=== PATIENT | male | born 1950 | race Caucasian/White ===

== ENCOUNTER 2020-03-06 07:00 | Outpatient (NON) | payer MEDICARE, SELFPAY ==
[2020-03-07 13:19] LABS: SARS-CoV-2 RNA PCR Negative
== END 2020-03-06 07:01 ==
PROVIDERS: PCP Family Medicine; Visit Provider Nurse Practitioner
DX: Z01.812 Encounter for preprocedural laboratory examination (principal); Z20.828 Contact with and (suspected) exposure to other viral communicable diseases
CPT/HCPCS: 87635; C9803; U0003

== ENCOUNTER 2020-06-04 08:07 | Outpatient (CLI) | payer MEDICARE, SELFPAY ==
--- NOTE | ~2020-06-04 | US_ITS ---
US arterial ankle brachial ind INDICATION: Peripheral vascular disease TECHNIQUE: Segmental pressures and plethysmographic and Doppler waveforms of the brachial and lower e xtremity arteries were obtained. COMPARISON: None. FINDINGS: Right and left brachial artery pressures of 139 mm Hg and 142 mm Hg, respectively, are concordant (no rmal difference <= 30 mmHg). The right ankle-brachial index (DIOGENES) is 0.53 (normal >= 0.9-1.0). The right great toe-brachial index (TBI) is 0.33 (normal >= 0.60). The left DIOGENES is 0.66. The left TBI is 0.42. IMPRESSION: 1. Moderate bilateral peripheral vascular disease, right greater than left. Reviewed, dictated and finalized at location B. 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
--- NOTE | ~2020-06-04 | XR_ITS ---
XR hip LT 2V w AP pelvis 06/04/2020 08:45 Indication: Left hip pain Procedure: AP pelvis Comparison: No prior studies for comparison. Findings: Pelvic rings are intact. Mild lower lumbar spondylosis. Sacral foramen are symmetric. There are mild degenerative changes of the hips. No fracture or traumatic malalignment. Impression: 1: Mild symmetric osteoarthritis of the hips. Reviewed, dictated and finalized at location B. PROGRAM ENGAGEMENT DIRECTOR Impression: 1: Mild symmetric osteoarthritis of the hips.
== END 2020-06-04 08:08 | disposition home or self-care (01) ==
PROVIDERS: PCP Family Medicine; Visit Provider Nurse Practitioner Family
DX: M54.5 Low back pain (principal); I73.9 Peripheral vascular disease, unspecified; M16.0 Bilateral primary osteoarthritis of hip
CPT/HCPCS: 73502; 93922

== ENCOUNTER 2021-03-10 07:49 | Outpatient (CLI) | payer MEDICARE, SELFPAY ==
[2021-03-10 09:22] LABS: Hemoglobin A1C 5.9 % (<5.7)
== END 2021-03-10 07:50 | disposition home or self-care (01) ==
LOC: ANHSURGERY 07:52
PROVIDERS: PCP Family Medicine; Visit Provider Urology
DX: T83.490A Other mechanical complication of implanted penile prosthesis, initial encounter (principal)
CPT/HCPCS: 36415; 83036; 87086

== ENCOUNTER 2021-03-31 01:12 | Day surgery (SDC) | payer MEDICARE, SELFPAY ==
--- NOTE | 2021-03-10 08:30 | PC.NURSE ---
Report to the Outpatient Waiting Room, entrance under the green pavilion located off [facility], at time _1000 on date _03/31/21 . OR Time: 1200 . - You and your visitor will be asked a series of questions to screen for COVID 19 for your protection. - A mask is required within the hospital. - Only one visitor is allowed at this time. Patient visitors will be guided where to wait when not with patient. Preoperative COVID Testing Requirements: No COVID Test needed if: (proof is required; if not received patient will have Rapid Test prior to entry) - Patient has received COVID Vaccine at least 14 days prior to procedure date or - Patient has positive COVID test result within last 90 days of surgery date. COVID Test needed if above criteria is not met If not COVID vaccinated a COVID test must be conducted within 72 hours of surgery and patient is asked to isolate self from time of testing until procedure. You will go to the [facility] for your COVID testing. The [facility] site is located at the corner of [address] [facility]. You will only be called if COVID results are positive and your surgeon may reschedule your elective surgery date. Patients may have clear liquids (water, carbonated beverages, clear teas, apple juice) until 3 hours prior to surgery with a maximum of 20 ounces. - No food from midnight until time of surgery - Infants may have breast milk until 4 hours before surgery, formula 6 hours prior to surgery. - Children will be allowed to drink immediately following surgery. If applicable, please bring a bottle or sippy cup to assist with drinking. Juice, water, soda, and popsicles are readily available. For infants on formula, please bring formula the day of surgery. Pacifiers are allowed. Take the following medications with a SIP of water the morning of surgery: _INHALER IF NEEDED Medications to discontinue per physician PATIENT STATES__ALL VITAMINS AND SUPPLEMENTS, ASPIRIN 7 DAYS PRE OP PER DR GUERRA Date to take last dose__03/23/21 Please no make-up, nail persian, hairspray, perfume, deodorant, or body powder the day of surgery. No jewelry (including any body piercings) or valuables the day of surgery, leave them at home. Please take a shower or bath the night before, or the morning of, surgery with an antibacterial soap. Wear comfortable, loose fitting clothing. Children are encouraged to wear pajamas. - Jewelry must be removed prior to entering the operating room. Rings and piercings that are not removed may be cut off. - The hospital will not accept responsibility for valuables. - Please leave all valuables, including medications, at home the day of surgery. If you are going home after surgery, a licensed over the road driver must drive you home. - NO public transportation without another adult. - We recommend that an adult stay with you for 24 hours following discharge. - We also recommend that you do not drive, make important decision, drink alcoholic beverages, or take any drugs that were not prescribed by your health care provider for at least 24 hours after your discharge time. For Pediatric surgeries, we recommend two adults accompany the child home (only one inside the building at this time). Follow any additional instructions given to you from your surgeon. VERBAL instructions given to __PATIENT and asked if any additional questions and then verbalized understanding. Patient advised to call surgeon office or pre surgery nurse liaison [phone] if any additional questions.
[2021-03-10 08:53] VITALS: BP 155/71; PULSE 85; RESP 16; TEMP 36.8; O2SAT 97
[2021-03-10 09:06] VITALS: BMI 32.8
[2021-03-31] VITALS (8 sets, daily range): BP systolic 124–164; BP diastolic 45–84; PULSE 71–96; RESP 13–22; TEMP 36.4–36.8; O2SAT 90–98
[2021-03-31] MEDS: LACTATED RINGERS 1,000 ML 30 ML IV CONT ×2 (10:34→15:46)
[2021-03-31] MEDS: GENTAMICIN SULFATE INJ 400 MG in DEXTROSE 5% 100 ML 98 MG IVPB (10:47)
--- NOTE | 2021-03-31 10:52 | WPDANESEPPF ---
Anes - Initial Pre Proc Eval Procedure: Operation Date: 03/31/21 12:00 Proposed Procedures p Removal and Replacement Of Penile Implant - Lucia Obregon MD Date/Time: 03/31/21 10:52 Surgeon: Lucia Obregon MD Pre Op Diagnosis: malfunction penile prosthesis Patient Data Age: 70 Gender: M Height: 1.73 m Weight: 99.3 kg Last Vital Signs Temp 36.4 C L 03/31/21 10:49 Pulse 71 03/31/21 10:49 Resp 16 03/31/21 10:49 BP 124/62 03/31/21 10:49 Pulse Ox 98 03/31/21 10:49 Allergies Allergy/AdvReac Type Severity Reaction Status Date / Time No Known Allergies Allergy Verified 03/31/21 10:07 Home Medications Medication Instructions Recorded Confirmed Type aspirin 81 mg tablet,delayed 81 mg PO DAILY 10/01/20 03/31/21 History release atorvastatin 20 mg tablet 20 mg PO QHS 11/25/20 03/31/21 History acetaminophen 650 mg 650 mg PO Q8H 01/29/21 03/31/21 History tablet,extended release fluticasone propionate 50 2 spray INTRANASAL DAILY #9 ml 01/29/21 03/31/21 Rx mcg/actuation nasal spray,suspension multivitamin 1 tablet PO DAILY 01/29/21 03/31/21 History albuterol sulfate 90 mcg/actuation 1 puff INHALATION Q4H PRN #25.5 g 03/19/21 03/31/21 Rx aerosol inhaler Patient hx anesthesia problems: none Family hx anesthesia problems: none Results Review: All pre-operative results and documents have been reviewed as part of the pre-operative evaluation. FOR[facility], [facility] Past Medical History Medical History Anxiety Arthralgia of both hands Chronic rhinitis Emphysema lung History of basal cell cancer Hyperlipidemia Multiple lung nodules 8mm sub-solid, multiple nodules Nicotine dependence, unspecified, uncomplicated Peripheral artery disease Follows with Dr Gooden Prediabetes Surgical History Surgical History History of femoropopliteal bypass 10/2020 - Right History of femoropopliteal bypass 01/2021-Left History of tympanostomy S/p bilateral myringotomy with tube placement S/P Mohs surgery for basal cell carcinoma [place] teeth removed Family History Family History Father Family history of malignant neoplasm, Onset Age: 58 Social History Social History Smoking packs per day: 2 Smoking cigarettes per day: 40.0 Years smoked: 50 Smoking pack-years: 100.00 Smoking status: Current every day smoker Tobacco type: cigarettes Second hand tobacco smoke exposure: Yes Additional smoking assessment comments: smokes 1 and 1/2 to 2 packs of cigarettes a day Alcohol intake: current Drinks per week: 15 Alcohol use details: consumes 5 or 6 beers every few days Substance use: never Substance use type: does not use Living arrangements: alone Spiritual care concerns: No Anes - Eval Final PreProcedure Day of Procedure 03/31/21 10:52 Patient weight: obese Heart: regular rate and rhythm Lungs: decreased breath sounds Airway: Mallampati scale class II Neurological: alert and oriented Last oral intake: >/= 8 hours ASA classification: IV Emergent: no Anesthetic plan: proceed Anesthesia type and monitoring: general LMA and standard monitoring Results Review: All pre-operative results and documents have been reviewed as part of the pre-operative evaluation. Informed Consent: The patient's anesthetic plan and its attendant risks and benefits were discussed with the patient/family/POA. Questions were solicited and answers provided to the satisfaction of the patient/family/POA.
--- NOTE | 2021-03-31 11:02 | SUR.PREOP ---
PT MADE AWARE THAT SURGERY DELAYED UNTIL EST. 1230 R/T PREV CASE DELAY AND SURGEON OFFICE DELAY. PT VOICES UNDERSTANDING.
--- NOTE | 2021-03-31 12:42 | WPDHPUPDATE1 ---
History and Physical Update Update Date/Time: 03/31/21 12:42 History and Physical has been reviewed, including an updated exam of the patient. There are NO changes in the patient's condition. Risks, benefits, and alternatives have been discussed and questions answered. Patient agrees to proceed with procedure.
--- NOTE | 2021-03-31 15:48 | W.PM.PROC2 ---
Procedure Note - Detailed Date of Procedure 03/31/21 Pre-op Diagnosis malfunction penile prosthesis Post-op Diagnosis same Procedure Performed Inflatable penile prosthesis exchange to Ambicor device. 2. Washout with antibiotics Surgeon Lucia Obregon MD Anesthesia general Description of Procedure Informed consent was obtained. The patient taken to the operating room and given preoperative IV antibiotics with vancomycin and gentamicin. Additionally the patient was taking oral levofloxacin at home. The patient was shaved, prepped and draped in the normal sterile fashion in the supine position was frog legged. The patient had a scrub with Betadine followed by ChloraPrep. We then made a 4 cm incision over the patient's pre- existing penoscrotal incision. We then dissected bluntly down to the corporal body into the pump. The pump was identified and freed from surrounding structures. We took great care to identified the urethra and not injure it throughout the operation. We then dissected down to the right corporal body. We opened and the prosthesis was removed. We performed the identical procedure on the contralateral side. We did note that there was exposure of each implant through the midline septum, and the 2 cylinders adjacent to one another likely increase the time for device malfunction. There was no urethral injury. At this point we then followed the tubing to the right inguinal canal and the tubing was cut high in the scrotum. We then irrigated with 1) Vancomycin/gentamicin,2) Tobramycin/Ancef, 3) Bacitracin. We copiously irrigated, changed our gloves. We then irrigated the corporal bodies again. We placed dilators into each of the proximal corpora and there was no crossover noted. There was approximately 4cm of injury to the midline septum the 2 corpora. There was no ureteral injury. We then measured the right side 10.5 cm distally and 7 cm proximally and left side size 10.5 cm distally and 6 cm proximally and left side. The patient previously had a 1.5cm discrepancy (17.5cm right and 16cm left). We placed an 12.5mmx 14 cm Ambicor device + 3.5cm right and 2.5cm left. We then inflated the device and there appeared to be slight lateral deviation of the left cylinder we therefore exchanged to a 2cm left rear tip with much straighter erection. The device sat nicely. Inflation was performed before and after closing the corporotomy, it sat nicely. We then again irrigated copiously. The final device was 12.5mm x14cm with 3.5cm right and 2cm left rear tip extenders. We then made a inferior anterior space for the scrotal pump. We then cycled the device again and it functioned nicely. We then removed the stay sutures through the glans. We then again irrigated copiously. We closed the scrotal incision with a longitudinal followed by transverse 3-0 Vicryl sutures and then 4-0 Monocryl skin closure. Glue was placed over all incisions. A compressive dressing was placed. Patient was awakened and taken to recovery room in stable condition. IV FLUIDS Per Anesthesia. COMPLICATIONS None. EBL Minimal. FOLLOW UP The patient will be discharged home. He will removed catheter and dressing tomorrow. Drains No Packing No Pathology none sent Complications No immediate complications Condition stable Disposition PACU
[2021-03-31] MEDS: fentaNYL CITRATE INJ (*CRX) 100 MCG/2 ML VIAL 25 MCG IV PUSH (16:39)
== END 2021-03-31 18:15 | disposition home or self-care (01) ==
PROVIDERS: PCP Family Medicine; Visit Provider Urology
PROC: (CPT 54410; principal; 2021-03-31 12:00)
DX: T83.490A Other mechanical complication of implanted penile prosthesis, initial encounter (principal); Y83.8 Other surgical procedures as the cause of abnormal reaction of the patient, or of later complication, without mention of misadventure at the time of the procedure; E78.5 Hyperlipidemia, unspecified; J43.9 Emphysema, unspecified; R73.03 Prediabetes; I73.9 Peripheral vascular disease, unspecified; Z79.51 Long term (current) use of inhaled steroids; Z79.82 Long term (current) use of aspirin; F17.210 Nicotine dependence, cigarettes, uncomplicated; E66.9 Obesity, unspecified; Z68.33 Body mass index [BMI] 33.0-33.9, adult
CPT/HCPCS: 54410; A9270; J0330; J0690; J1100; J1170; J1580; J2250; J2405; J2704; J3010; J3260; J3370; J7030; J7120

== ENCOUNTER → 2022-02-14 14:26 | Outpatient (CLI) | payer MEDICARE, SELFPAY ==
--- NOTE | ~2022-02-14 | XR_ITS ---
XR knee RT 2V DATE: 02/14/2022 14:48 INDICATION: Right knee pain TECHNIQUE: AP and lateral views COMPARISON: None FINDINGS: No fracture or dislocation or joint effusion. No periosteal reaction or bone destruction. J oint spaces are preserved. No radiopaque intra-articular loose body or chondrocalcinosis. Arterial calcifications. IMPRESSION: No significant bony or soft tissue abnormality other than arterial calcification Reviewed, dictated and finalized at location A.
--- NOTE | ~2022-02-14 | XR_ITS ---
XR lumbar spine 2-3V DATE: 02/14/2022 14:48 INDICATION: Low back pain for years TECHNIQUE: AP, lateral views COMPARISON: 08/15/2016 CT abdomen pelvis FINDINGS: There is mild dextroscoliosis of the lumbar spine. Included lower thoracic and lumbar pedicles are intact. No fracture or bone destruction is detected. Moderately prominent degenerative disc disease, greatest at L3-4 and L4-5. The sacroiliac joints are intact. There is extensive calcification of the abdominal aorta and iliac arteries, without evidence of aneur ysm. IMPRESSION: Mild dextro scoliosis and multilevel degenerative disc disease Reviewed, dictated and finalized at location A.
== END ==
PROVIDERS: PCP Nurse Practitioner Family; Visit Provider Nurse Practitioner Family
DX: M54.50 Low back pain, unspecified (principal); M25.561 Pain in right knee; M51.36 Other intervertebral disc degeneration, lumbar region
CPT/HCPCS: 72100; 73560

== ENCOUNTER 2022-04-08 09:58 | Outpatient (CLI) | payer MEDICARE, SELFPAY ==
--- NOTE | ~2022-04-08 | CT_ITS ---
EXAMINATION: CT lumbar spine wo con DATE: 04/08/2022 10:21 INDICATION: Lumbar radiculopathy. Chronic low back pain. TECHNIQUE: Computed tomography (CT) of the lumbar spine was performed without intravenous contrast. A utomated exposure control and iterative reconstruction technique were employed. The dose-length produ ct was 1273.86 mGy-cm. COMPARISON: Lumbar spine radiographs 02/14/2022 FINDINGS: There is 5 degrees dextrocurvature of thoracic lumbar spine. There is 3 mm retrolisthesis o f L5 on S1 and L3 on L4. There is mild chronic anterior wedging of T12 and L1 vertebral bodies, likel y physiologic. There is mildly decreased disc height at L1-L2 and L3-L4 and moderately decreased disc height at L5-S1 with endplate remodeling. The following disc levels are specifically discussed: L1-L2: The disc is bulging. There is mild bilateral facet joint osteoarthritis. There is mild bilater al neural foraminal stenosis. There is mild central canal stenosis. L2-L3: The disc is bulging. There is mild bilateral facet joint osteoarthritis. There is moderate magan ateral neural foraminal stenosis. There is mild central canal stenosis. L3-L4: The disc is bulging. There is mild bilateral facet joint osteoarthritis. There is moderate magan ateral neural foraminal stenosis. There is mild central canal stenosis. L4-L5: The disc is bulging. There is mild bilateral facet joint osteoarthritis. There is moderate magan ateral neural foraminal stenosis. There is moderate central canal stenosis. L5-S1: The disc is bulging. There is mild bilateral facet joint osteoarthritis. There is mild bilater al neural foraminal stenosis. There is mild central canal stenosis. IMPRESSION: 1. Moderate lumbar spondylosis. Reviewed, dictated and finalized at location A. R REGULATOR
== END 2022-04-08 09:59 | disposition home or self-care (01) ==
PROVIDERS: PCP Family Medicine; Visit Provider Nurse Practitioner Family
DX: M47.26 Other spondylosis with radiculopathy, lumbar region (principal)
CPT/HCPCS: 72131

== ENCOUNTER 2022-05-16 14:34 | Outpatient (CLI) | payer MEDICARE, SELFPAY ==
--- NOTE | ~2022-05-16 | CT_ITS ---
EXAMINATION: CT knee RT wo con DATE: 05/16/2022 15:00 INDICATION: Right knee pain and joint swelling TECHNIQUE: High resolution computed tomography (CT) of the right knee was performed without intraveno us contrast. Additional sagittal and coronal reconstructions were performed. Automated exposure contr ol and iterative reconstruction technique were employed. The dose-length product was 453.30 mGy-cm. COMPARISON: None FINDINGS: Bone alignment is normal. There is a curvilinear region of lucency underlying the portion of the ante romedial articular cortex of the anterior weightbearing medial femoral condyle. This region measures 2 cm AP by 1 cm medial collateral. There is subtle flattening of the overlying articular cortex. Diff erential would include osteochondral lesion versus an impaction or stress fracture. No other lesions suspicious for fracture. Cortical irregularity with small central subchondral osteophyte and mild ret icular cystlike changes at the inferior aspect of the trochlear groove and inferomedial aspect of the lateral trochlea suggesting overlying high-grade chondromalacia. Small to moderate-sized right knee joint effusion. Distal aspect of a vascular stent anastomosis with the [id number] right popliteal artery. Atherosclerotic calcific lesions at the anterior tibial artery and tibioperoneal trunk. IMPRESSION: 1. Curvilinear lucency underlying a 2 x 1 cm region of the articular cortex of the anterior weightbea ring medial femoral condyle with subtle flattening of the overlying cortex most likely representing o steochondral lesion with early collapse and with differential including either impaction or stress fr acture. 2. 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 3. Small to moderate-sized right knee joint effusion. Reviewed, dictated and finalized at location B. OR MOBILE DEVELOPER IMPRESSION: 1. Curvilinear lucency underlying a 2 x 1 cm region of the articular cortex of the anterior weightbearing medial femoral condyle with subtle flattening of the overlying cortex most likely representing osteochondral lesion with early buck apse and with differential including either impaction or stress fracture. 2. Degenerative change articular cortex at the inferior trochlear groove and in feromedial lateral trochlea consistent with high-grade chondromalacia associate d with patellofemoral osteoarthritis. 3. Small to moderate-sized right knee joint effusion.
== END 2022-05-16 14:35 | disposition home or self-care (01) ==
PROVIDERS: PCP Family Medicine; Visit Provider Nurse Practitioner Family
DX: M25.461 Effusion, right knee (principal)
CPT/HCPCS: 73700

== ENCOUNTER 2023-03-24 10:17 | Outpatient (CLI) | payer MEDICARE, SELFPAY ==
--- NOTE | ~2023-03-24 | XR_ITS ---
EXAMINATION: XR lumbar spine min 4V DATE: 03/24/2023 11:22 INDICATION: Spondylosis without myelopathy or radiculopathy. TECHNIQUE: 4 views of lumbar spine standing including flexion and extension views were obtained. COMPARISON: Lumbar spine radiographs 02/14/2022 FINDINGS: There is 3 mm retrolisthesis of L2 on L3 and L3 on L4. There is 6 degrees dextrocurvature o f lumbar spine. There is mild chronic anterior wedging of T11-L1 vertebral bodies. There is mildly de creased disc height at L1-L2 and L2-L3, moderately decreased disc height at L3-L4, and mildly decreas ed disc height at L4-L5 and L5-S1. There are endplate osteophytes at all levels. There is multilevel facet joint osteoarthritis. There is no abnormal motion with flexion or extension. IMPRESSION: 1. Stable moderate lumbar spondylosis. Reviewed, dictated and finalized at location A. LE ARCHITECT
[2023-03-24 11:53] LABS: Basophils Absolute Auto 0.1 K/mm3 (0.0-0.1); Basophils Percent Auto 0.8 % (0.2-1.2); Eosinophils Absolute Auto 0.2 K/mm3 (0-0.3); Eosinophils Percent Auto 1.3 % (0-4.4); Hematocrit 38.9 % (42.0-52.0); Hemoglobin 13.3 g/dL (14.0-18.0); Immature Granulocyte Absolute 0.11 K/mm3 (0.00-0.031); Immature Granulocyte Percent A 0.9 % (0-0.5); Lymphocytes Absolute Auto 2.51 K/mm3 (0.9-3.2); Lymphocytes Percent Auto 20.5 % (18.3-44.2); Mean Corpuscular HGB Conc 34.2 g/dl (32-36); Mean Corpuscular Hemoglobin 30.6 pg (26-34); Mean Corpuscular Volume 89.4 fl (80-100); Mean Platelet Volume 9.7 fl (7.4-10.4); Monocytes Absolute Auto 1.2 K/mm3 (0.1-0.6); Monocytes Percent Auto 9.9 % (2.6-8.5); Neutrophils Absolute Auto 8.2 K/mm3 (1.3-6.7); Neutrophils Percent Auto 66.6 % (45.5-73.1); Platelet Count Result 253 k/mm3 (150-375); Red Blood Count 4.35 M/mm3 (4.6-6.20); Red Cell Distribution Width 14.1 % (11.5-14.5); White Blood Count 12.3 K/mm3 (4.5-10.0)
[2023-03-24 12:00] LABS: Alanine Aminotransferase 46 U/L (6-50); Albumin Level 4.4 g/dL (3.5-5.1); Alkaline Phosphatase 113 U/L (38-126); Anion Gap 14 mmol/L (8-16); Aspartate Amino Transferase 50 U/L (17-59); Bilirubin,Total 1.1 mg/dL (0.2-1.3); Blood Urea Nitrogen 20 mg/dL (9-20); Calcium 9.6 mg/dL (8.4-10.2); Carbon Dioxide 20 mmol/L (22-30); Chloride 95 mmol/L (98-107); Cholesterol 123 mg/dL (0-200); Estimated Glomerular Filt Rate 50; Glucose 431 mg/dL (65-110); HDL Direct 38 mg/dL; Potassium 4.5 mmol/L (3.4-5.0); Sodium 129 mmol/L (137-145); Triglycerides 232 mg/dL (<150)
[2023-03-24 12:04] LABS: Hemoglobin A1C 11.8 % (<5.7)
[2023-03-24 12:11] LABS: LDL Cholesterol Direct 48 mg/dL
[2023-03-24 13:53] LABS: Vitamin D 25 Hydroxy < 12.8 ng/mL
== END 2023-03-24 10:18 | disposition home or self-care (01) ==
PROVIDERS: PCP Family Medicine; Visit Provider Nurse Practitioner Family
DX: M25.541 Pain in joints of right hand (principal); M25.542 Pain in joints of left hand; Z00.00 Encounter for general adult medical examination without abnormal findings; E78.5 Hyperlipidemia, unspecified; Z13.220 Encounter for screening for lipoid disorders; R73.03 Prediabetes; Z13.29 Encounter for screening for other suspected endocrine disorder; E55.9 Vitamin D deficiency, unspecified; M47.816 Spondylosis without myelopathy or radiculopathy, lumbar region; M47.896 Other spondylosis, lumbar region
CPT/HCPCS: 36415; 72110; 80053; 80061; 82306; 83036; 84443; 85025

== ENCOUNTER 2023-04-12 13:21 | Outpatient (RCR) | payer MEDICARE, SELFPAY | END 2023-06-26 09:49 | disposition home or self-care (01) | LOC: ANHDMC 13:21 | PROVIDERS: PCP Family Medicine; Visit Provider Family Medicine | DX: E11.65 Type 2 diabetes mellitus with hyperglycemia (principal); Z71.89 Other specified counseling | CPT/HCPCS: G0108 ==

== ENCOUNTER 2023-08-30 12:55 | Outpatient (CLI) | payer MEDICARE, SELFPAY ==
[2023-08-30 21:10] LABS: Alanine Aminotransferase 34 U/L (6-50); Albumin Level 4.7 g/dL (3.5-5.1); Alkaline Phosphatase 78 U/L (38-126); Anion Gap 12 mmol/L (4-12); Aspartate Amino Transferase 45 U/L (17-59); Blood Urea Nitrogen 20 mg/dL (9-20); Calcium 10.2 mg/dL (8.4-10.2); Carbon Dioxide 20 mmol/L (22-30); Chloride 104 mmol/L (98-107); Estimated Glomerular Filt Rate 60; Glucose 116 mg/dL (65-110); Potassium 4.3 mmol/L (3.4-5.0); Sodium 136 mmol/L (137-145)
== END 2023-08-30 12:56 | disposition home or self-care (01) ==
LOC: ANHGOSHLAB 12:56
PROVIDERS: PCP Family Medicine; Visit Provider Family Medicine
DX: I10 Essential (primary) hypertension (principal); E11.9 Type 2 diabetes mellitus without complications
CPT/HCPCS: 36415; 80053; 83036

== ENCOUNTER 2023-09-26 13:02 | Outpatient (CLI) | payer MEDICARE, SELFPAY ==
--- NOTE | ~2023-09-26 | CT_ITS ---
CT Scan of the Chest without Contrast: Clinical Indication: Lung nodules Technique: Contiguous sections were acquired throughout the chest without intravenous contrast. Dose reduction technique was used on this scan by utilizing automated exposure control and iterative recon struction technique. The dose-length product (DLP) was 284.54 mGy-cm. Findings: Right paratracheal lymph node measures 2.2 x 1.5 cm (axial image 51). No lymphadenopathy evident. Cor onary artery calcifications are present. There is no evidence of pleural or pericardial effusion. There is a 3.0 x 1.6 cm irregular medial right upper lobe mass, probably abutting the right mediastin al border (axial image 42 for example), highly suspicious for malignancy. There is an additional 1 cm irregular pulmonary nodule in the right lower lobe (axial image 61). Additional 0.5 cm nodule presen t in the medial right lower lobe (axial image 78). Probable focal cystic bronchiectasis in the left u pper lobe raising cavitary nodule (axial image 40). Mild paraseptal emphysema present. Images through the upper abdomen reveal no abnormalities. Impression: 3.0 x 1.6 cm irregular medial right upper lobe mass/nodule, highly suspicious for bronchogenic carcin comfort. Tissue sampling advised to establish a histologic diagnosis. PET CT could also be considered to further evaluate. Additional 1 cm irregular pulmonary nodule right lower lobe, indeterminate. Additional malignant lesi on is not excluded. 5 mm right lower lobe pulmonary nodule, as above, indeterminate. Single enlarged right paratracheal lymph node. Rodriguez metastasis is not excluded. Consider PET/CT to e valuate for hypermetabolic activity, which would increase the index of suspicion. Reviewed, dictated and finalized at location . Impression: 3.0 x 1.6 cm irregular medial right upper lobe mass/nodule, highly suspicious f or bronchogenic carcinoma. Tissue sampling advised to establish a histologic di agnosis. PET CT could also be considered to further evaluate. Additional 1 cm irregular pulmonary nodule right lower lobe, indeterminate. Add itional malignant lesion is not excluded. 5 mm right lower lobe pulmonary nodule, as above, indeterminate. Single enlarged right paratracheal lymph node. Rodriguez metastasis is not excluded . Consider PET/CT to evaluate for hypermetabolic activity, which would increase the index of suspicion.
== END 2023-09-26 13:03 | disposition home or self-care (01) ==
PROVIDERS: PCP Family Medicine; Visit Provider Nurse Practitioner
DX: R91.8 Other nonspecific abnormal finding of lung field (principal)
CPT/HCPCS: 71250

== ENCOUNTER 2023-10-12 09:06 | Outpatient (CLI) | payer MEDICARE, SELFPAY ==
--- NOTE | ~2023-10-12 | PE_ITS ---
EXAMINATION: PET skull to mid thigh DATE: 10/12/2023 10:57 INDICATION: Other nonspecific abnormal findings of lung field. Right lung nodule. TECHNIQUE: Blood glucose level was 111 mg/dL. 9.675 mCi of 18-fluorodeoxyglucose (18-FDG) was adminis tered i.v. Low dose computed tomography (CT) images were acquired from the base of the brain to the p roximal thighs for attenuation correction and anatomic localization. Automated exposure control was e mployed. Dose-length product (DLP) was 1191 mGy-cm. Positron emission tomography (PET) images were ac quired in the same distribution. COMPARISON: Chest CT 09/26/2023 FINDINGS: Head/neck: There are no pathologically enlarged lymph nodes. Chest: There is mild emphysema. There is a 2.2 cm nodule and perihilar right upper lobe with maximum SUV of 11.2. There is a 13 mm cavitary nodule in right lung lower lobe with maximum SUV of 2.7. There is a 9 mm cavitary nodule in left upper lobe with maximum SUV of 2.3. A calcified left lung nodule a nd calcified left hilar lymph nodes are consistent with old edematous disease. No pleural effusion. T he heart size is normal. There are coronary artery calcifications. There is a 2.1 x 1.9 cm right para tracheal lymph node with maximum SUV of 17.1. Abdomen/pelvis/proximal thighs: There is diffuse hepatic steatosis. Calcifications in the spleen are consistent with old granulomatous disease. The gallbladder, pancreas, adrenal glands, and kidneys are normal. There are no dilated loops of bowel. The appendix is normal. There is a penile prosthesis. T here are arterial grafts in the thighs. There is calcified atherosclerosis of the aorta and many of t he other arteries. There are no pathologically enlarged lymph nodes. There is no free intraperitoneal fluid. There are bilateral inguinal hernias containing fat. There is no osseous malignancy. IMPRESSION: 1. Right lung upper lobe nodule with increased activity and enlarged right paratracheal lymph node wi th increased activity, consistent with primary bronchogenic carcinoma and sinai metastatic disease. C onsider bronchoscopy. 2. Cavitary nodules in right lower lobe and left upper lobe with borderline increased activity, consi stent with infection versus malignancy. 3. Mild emphysema. Reviewed, dictated and finalized at location A. IMPRESSION: 1. Right lung upper lobe nodule with increased activity and enlarged right para tracheal lymph node with increased activity, consistent with primary bronchogen ic carcinoma and sinai metastatic disease. Consider bronchoscopy. 2. Cavitary nodules in right lower lobe and left upper lobe with borderline inc reased activity, consistent with infection versus malignancy. 3. Mild emphysema.
[2023-10-12 09:36] LABS: Glucose Point of Care 111 mg/dl (65-105)
== END 2023-10-12 09:07 | disposition home or self-care (01) ==
PROVIDERS: PCP Family Medicine; Visit Provider Nurse Practitioner
DX: R91.8 Other nonspecific abnormal finding of lung field (principal); J43.9 Emphysema, unspecified
CPT/HCPCS: 78815; A9552

== ENCOUNTER 2024-03-18 09:07 | Outpatient (CLI) | payer MEDICARE, SELFPAY ==
[2024-03-18 11:19] LABS: Hemoglobin 14.9 g/dL (14.0-18.0); Mean Corpuscular HGB Conc 32.4 g/dl (32-36); Mean Corpuscular Hemoglobin 31.7 pg (26-34); Mean Corpuscular Volume 97.9 fl (80-100); Mean Platelet Volume 9.4 fl (7.4-10.4); Platelet Count Result 241 k/mm3 (150-375); Red Cell Distribution Width 13.5 % (11.5-14.5); White Blood Count 12.9 K/mm3 (4.5-10.0)
[2024-03-18 11:38] LABS: Alanine Aminotransferase 31 U/L (6-50); Albumin Level 4.5 g/dL (3.5-5.1); Alkaline Phosphatase 80 U/L (38-126); Anion Gap 10 mmol/L (4-12); Aspartate Amino Transferase 40 U/L (17-59); Bilirubin,Total 0.7 mg/dL (0.2-1.3); Blood Urea Nitrogen 14 mg/dL (9-20); Calcium 9.8 mg/dL (8.4-10.2); Carbon Dioxide 23 mmol/L (22-30); Chloride 103 mmol/L (98-107); Cholesterol 128 mg/dL (0-200); Estimated Glomerular Filt Rate 54; Glucose 125 mg/dL (65-110); HDL Direct 46 mg/dL; Sodium 136 mmol/L (137-145); Triglycerides 122 mg/dL (<150)
[2024-03-18 11:46] LABS: Creatinine Urine 53.7 mg/dL
[2024-03-18 11:48] LABS: LDL Cholesterol Direct 44 mg/dL
[2024-03-18 11:53] LABS: MALB Creatinine Ratio 264.1 mg/g (0-30); Microalbumin Urine Random 141.8 mg/L (0-16.7)
[2024-03-18 12:05] LABS: Prostate Specific Antigen 12.1 ng/mL (< OR = 4.0)
== END 2024-03-18 09:08 | disposition home or self-care (01) ==
PROVIDERS: PCP Family Medicine; Visit Provider Nurse Practitioner
DX: E11.65 Type 2 diabetes mellitus with hyperglycemia (principal); E11.9 Type 2 diabetes mellitus without complications; Z12.5 Encounter for screening for malignant neoplasm of prostate
CPT/HCPCS: 36415; 80053; 80061; 82043; 83036; 84153; 84443; 85027; G0103

== ENCOUNTER 2024-04-02 09:33 | Outpatient (CLI) | payer MEDICARE, SELFPAY ==
--- NOTE | ~2024-04-02 | CT_ITS ---
CT Scan of the Chest without Contrast: Clinical Indication: Lung nodule Technique: Contiguous sections were acquired throughout the chest without intravenous contrast. Dose reduction technique was used on this scan by utilizing automated exposure control and iterative recon struction technique. The dose-length product (DLP) was 164.40 mGy-cm. COMPARISON: 09/26/2023 Findings: Stable enlarged right paratracheal lymph node. Coronary artery calcifications are present. There is no evidence of pleural or pericardial effusion. Irregular medial right upper lobe lesion is probably mildly increased from prior exam, now measuring 3.5 x 2.1 cm in transverse dimensions. Stable semisolid or cavitary versus irregular cavitary nodule in the right lower lobe (axial image 57). There is mild diffuse subpleural reticulation and minimal p eripheral chronic interstitial thickening. Stable focal cavitary nodule in the left upper lobe periph erally (axial image 42). Images through the upper abdomen reveal probable diffuse hepatic steatosis. Impression: 3.5 x 2.1 cm irregular medial right upper lobe lesion is compatible bronchogenic carcinoma, mildly in creased in size from prior exam. Stable enlarged right paratracheal lymph node, suspicious for sinai metastasis. 2 additional cavitary versus pseudocavitary/semisolid lesions, one in the right lower lobe, one in th e left upper lobe, as detailed above, essentially stable from prior exam. These are nonspecific. Thes e could reflect more indolent lesions such as bronchopneumonia cell carcinoma. Mild background chronic interstitial disease. Reviewed, dictated and finalized at [facility]. ERPUNCHER Impression: 3.5 x 2.1 cm irregular medial right upper lobe lesion is compatible bronchogeni c carcinoma, mildly increased in size from prior exam. Stable enlarged right paratracheal lymph node, suspicious for sinai metastasis. 2 additional cavitary versus pseudocavitary/semisolid lesions, one in the right lower lobe, one in the left upper lobe, as detailed above, essentially stable from prior exam. These are nonspecific. These could reflect more indolent lesio ns such as bronchopneumonia cell carcinoma. Mild background chronic interstitial disease.
== END 2024-04-02 09:34 | disposition home or self-care (01) ==
PROVIDERS: PCP Family Medicine; Visit Provider Internal Medicine Pulmonary Disease
DX: R91.1 Solitary pulmonary nodule (principal)
CPT/HCPCS: 71250

== ENCOUNTER 2024-05-09 09:09 | Outpatient (CLI) | payer MEDICARE, SELFPAY ==
--- NOTE | ~2024-05-09 | PE_ITS ---
EXAMINATION: PET skull to mid thigh DATE: 05/09/2024 11:48 INDICATION: Lung cancer staging TECHNIQUE: Blood glucose level was 120 mg/dL. 10.432 mCi of 18-fluorodeoxyglucose (18-FDG) was admini stered i.v. Low dose computed tomography (CT) images were acquired from the base of the brain to the proximal thighs for attenuation correction and anatomic localization. Positron emission tomography (P ET) images were acquired in the same distribution beginning 59 minutes after injection. Images includ ing fused PET/CT images were reconstructed in axial, coronal, and sagittal planes. Automated exposure control technique was employed. The dose-length product was 1197.89mGy-cm. COMPARISON: 10/12/2023 FINDINGS: Head/neck: There is symmetric increased activity in the nares, oral cavity, palatine tonsils, laryngeal muscles and ocular muscles without CT correlate, likely physiologic. No pathologically enlarged cervical lymp hadenopathy or suspicious foci of increased FDG uptake in the visualized head or neck. Chest: Mild emphysema. Calcified left upper lobe nodule and calcified left hilar lymph nodes consistent with old granulomatous disease. Increase in size of a previously 2.2 cm, now 3.6 x 2.0 cm FDG avid spicul ated mass in the suprahilar right upper lobe with maximal SUV of 14.3. There is also been increase in size of a previously 1.2 cm, currently 1.5 x 0.8 cm FDG avid centrally cavitary nodule in the left u pper lobe with maximal SUV of 5.0. No significant change in size of a 1.5 cm centrally cavitary nodul e in the superior segment of the right lower lobe with maximal SUV of 2.1. Heart size normal. Atheros clerotic coronary artery calcific lesion. No pericardial effusion. Interval increase in size of a pre viously 2.0 x 1.9 cm, currently 2.3 x 2.1 cm FDG avid right paratracheal lymph node with maximal SUV of 17.8. There is a small FDG avid right hilar lymph node which is unable to be distinguished from th e adjacent pulmonary vasculature on CT but with maximal SUV of 6.0. Slight increase in size of a now 9 mm lymph node situated between the innominate and left subclavian arteries with new increased FDG u ptake with maximal SUV of 5.6. Abdomen/pelvis/proximal thighs: Physiologic renal accumulation and excretion of FDG activity in the kidneys, bladder and along portio ns of ureters. Diffuse hepatic steatosis with normal degree and heterogenous pattern of increased upt kartik throughout the liver without radiologic correlate or dominant FDG avid lesion. And numerous splen ic calcification consistent with old granulomatous disease. The gallbladder, pancreas and bilateral a drenal glands are normal. Mild uptake scattered throughout the bowels without radiologic correlate, a lso likely physiologic. Normal appendix. There are bilateral fat-containing hernias. Partially visual ized bilateral likely femoral artery bypass graft. There are also postoperative changes of likely rev ised penile prosthesis. No other abnormal foci of increased FDG uptake or pathologically enlarged lym phadenopathy in the abdomen, pelvis or proximal thighs. Musculoskeletal: Scattered degenerative skeletal changes. No suspicious lytic, blastic or abnormally FDG avid bone les ions. IMPRESSION: 1. Increase in size of a spiculated right upper lobe mass and increasing size and activity of mediast inal and right hilar lymph nodes consistent with progression of primary lung cancer and associated no lilly metastatic disease. 2. Mild emphysema with small cavitary nodules, unchanged in size with mildly decreased FDG activity i n the right lower lobe and increased in size and degree of FDG uptake in left upper lobe, both of whi ch remains equivocal for malignancy versus infection. Reviewed, dictated and finalized at [facility]CH [facility] IMPRESSION: 1. Increase in size of a spiculated right upper lobe mass and increasing size a nd activity of mediastinal and right hilar lymph nodes consistent with progress ion of primary lung cancer and associated sinai metastatic disease. 2. Mild emphysema with small cavitary nodules, unchanged in size with mildly de creased FDG activity in the right lower lobe and increased in size and degree o f FDG uptake in left upper lobe, both of which remains equivocal for malignancy versus infection.
[2024-05-09 09:33] LABS: Glucose Point of Care 120 mg/dl (65-105)
--- OUTSIDE RECORDS SUMMARY | 2024-05-16 01:59 | XMS_ITS | CONTINUITY OF CARE DOCUMENT ---
Author Name johnnie blair Address Unknown Organization [facility] Address [address], [place] [address] Phone [phone] Care Team Providers Care Torpedo Worker Name Role Phone johnnie blair Unavailable Unavailable INSURANCE PROVIDERS Payer name Policy type / Coverage type Grimes red green party ID [facility] [employer] insurance company [id number]
--- OUTSIDE RECORDS SUMMARY | 2024-05-16 01:59 | XMS_ITS | Clinical Summary ---
Author Organization [facility] Address [address] [place] [address]. [place] [address] [place] [address] Care Team Providers Care Squeegee Tender Name Role Phone Emily Hensley MD Primary Care Provider Allergies Active Allergy Reactions Criticality Noted Date Comments Meloxicam Syncope 11/09/2020 Medications atorvastatin 20 MG tablet Take 1 tablet by mouth daily. 10/12/2020 Active Acetaminophen (ACETAMINOPHEN EXTRA STRENGTH) 500 MG Cap Take 3 tablets by mouth daily. Active Multiple Vitamins-Minera ls (MULTIVITAMIN ADULTS 50+ OR) Activ e Albuterol Sulfate 108 (90 Base) MCG/ACT AEROSOL POWDER, BREATH ACTIVATED Active Active Problems Problem Noted Date Diagnosed Date Claudication 01/25/2021 Claudication of both lower extremities PVC (premature ventricular contraction) 09/08/19 PVD (peripheral vascular disease) 09/07/2020 Tobacco use 09/07/2020 Family History Medical History Relation Comments Cancer Father acute leukemia Relation Status Comments Brother Father Mother Son Alive Social History Tobacco Use Types Packs/Day Years Used Date Smoking Tobacco: Every Day Cigarettes 1 50 Smokeless Tobacco: Current Alcohol Use Standard Drinks/Week Comments Yes 5 (1 standard drink = 0.6 oz pur e alcohol) socially Sex and Gender Information Value Date Recorded Sex Assigned at Not on file Legal Sex Male 6:29 AM CDT Gender Identity Not on file Sexual Orientation Not on file Last Filed Vital Signs Vital Sign Reading Time Taken Comments Blood Pressure 133/64 01/26/2021 5:00 PM CDT Pulse 85 01/26/2021 11:00 AM CDT Temperature 36.6 ??C (97.8 ??F) 01/26/2021 9:00 AM CD T Respiratory Rate 20 01/26/2021 2:00 PM CDT Oxygen Saturation 96% 01/26/2021 5:00 PM CDT Inhaled Oxygen Concentration - - Weight 101.6 kg (223 lb 15.8 oz) 01/26/2021 1:00 AM CDT Height 172.7 cm (5' 8 ) 01/25/2021 11:4 5 AM CDT Body Mass Index 34.06 01/25/2021 11:45 AM CDT Plan of Treatment Health Maintenance Due Date Last Done Comments Colorectal Cancer Screening Colonoscopy (10 Years) 1950 Pneumococcal Vaccine: 65+ Years (1 of 2 - PCV) 1957 Hepatitis C 1969 DTaP, Tdap and Td Vaccines ( 1 - Tdap) 1970 Zoster Vaccines (1 of 2) 2001 Annual Medicare Wellness Visit 2016 COVID-19 Vaccine (3 - 2023-2 5 season) 2023 07/27/2020, 07/05/2020 Influenza Adult (#1) 2024 RSV Immunization or 60+ Years (1 - 1-dose 75+ series) 2026 Meningococcal Vaccine Aged Out No get felipe eligible based on patient's age to complete this topic RSV Immunizations Under 20 Months Aged Out No longer eligible b ased on patient's age to complete this topic Medical Devices Implanted Type Area Refrigeration Installer Device Identifier Shelf Expiration Date Model / Serial / Lot Graft Gortex 45 Access Stnd Wall Stretch 4-7mm - [id number] Implanted:Qty : 1 on 11/16/2020 by Crow Gooden MD at [facility] Graft Right: Leg [employer] [id number] 08/10/2025 [id number] / [id number] / Graft [place] [employer] [id number] - [id number] Implanted:Qty : 1 on 01/25/2021 by Crow Gooden MD at [facility] Graft Left: Leg [employer] [id number] 09/20/2024 [id number] / [id number] / [id number] Insurance [employer] Advance Directives * Full Code (Latest Code Status on File) Date Activated Date Inactivated Comments 01/25/2021 7:56 PM 01/26/2021 8:32 PM * Full Code Date Activated Date Inactivated Comments 11/16/2020 11:43 AM 11/18/2020 11:52 AM * Full Code Date Activated Date Inactivated Comments 08/21/2020 9:59 AM 08/21/2020 4:13 PM Care Teams Squeegee Tender Relationship Specialty Start Date End Date Emily Hensley MD [address] [place] [address] PCP - General FAMILY PRACTICE 08/21/20
--- OUTSIDE RECORDS SUMMARY | 2024-05-16 01:59 | XMS_ITS | Encounter Summary ---
Author Organization [facility] Address [address] [place] [address] Care Team Providers Care Maori Liaison Adviser Name Role Phone Emily Hensley MD Primary Care Provider Encounter Details Date Type Department Care Team (Late st Contact Info) Description 05/07/2024 External Device Data [facility] ABSTRACTION Provider, Abstract NO ADDRESS ON FILE Social History Tobacco Use Types Packs/Day Years Used Date Smoking Tobacco: Every Day Cigarettes 0.3 60 Started: 05/01/1963 Alcohol Use Standard Drinks/Week Comments Yes 28 (1 standard drink = 0.6 oz pu re alcohol) Sex and Gender Information Value Date Recorded Sex Assigned at Not on file Legal Sex Male 2:16 PM DRYING ROOM SUPERVISOR Gender Identity Not on file Sexual Orientation Not on file documented as of this encounter Plan of Treatment Upcoming Encounters Date Type Department Care Team (Late st Contact Info) Description 05/23/2024 2:00 PM DRYING ROOM SUPERVISOR Office Visit [facility] [place] [address] [place] [address] [address] Jose Gates MD [address] [place] [address] documented as of this encounter Visit Diagnoses Not on filedocumented in this encounter Care Teams Maori Liaison Adviser Relationship Specialty Start Date End Date Emily Hensley MD [address] [place] [address] PCP - General Family Practice 05/03/24 documented as of this encounter
--- OUTSIDE RECORDS SUMMARY | 2024-05-16 01:59 | XMS_ITS | Clinical Summary ---
Author Organization [facility] [address] Address [address] [place] [address] Care Team Providers Care Knife Setter Assembler Name Role Phone Emily Hensley MD Primary Care Provider Britany Webber MD Unavailable [phone] Allergies No known active allergies Medications albuterol HFA (PROVENTIL HFA,VENTOLIN HFA,PROAIR HFA) 90 mcg/actuation inhaler 1 Active aspirin 81 mg enteric coated tabletIndications: Tobacco use,PVC (premature ventricular contraction),Preop cardiovascular exam TAKE 1 TABLET BY MOUTH EVERY DAY 90 tablet 3 3 Active metFORMIN XR (GLUCOPHAGE XR) 500 mg 24 hr tablet Take 2 tablets (1,000 mg total) by mouth nightly 4 Active glipiZIDE XL (GLUCOTROL XL) 10 mg 24 hr tablet Take 1 tablet (10 mg total) by mouth daily 4 Active Jardiance 25 mg tablet Take 1 tablet (25 mg total) by mouth every morning 4 Active cholecalciferol (VITAMIN D-3) 5,000 unit capsule Take 1 capsule (5,000 Units total) by mouth daily Active atorvastatin (LIPITOR) 20 mg tabletIndications: 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) TAKE 1 TABLET(20 MG) BY MOUTH DAILY 90 tablet 2 4 Active azelastine (ASTELIN) 137 mcg (0.1 %) nasal spray Administer 1 spray into each nostril 2 (two) times a day 4 Active Dexcom G7 Sensor device 4 Active lisinopriL (PRINIVIL,ZESTRIL) 5 mg tablet Take 1 tablet (5 mg total) by mouth daily Active traMADoL (ULTRAM) 50 mg tablet Take 1 tablet (50 mg total) by mouth every 6 (six) hours as needed for pain Active Active Problems Problem Noted Date Diagnosed Date Mass of upper lobe of right lung 04/04/2024 Tobacco use 09/07/2020 PVC (premature ventricular contraction) 09/08/19 PVD (peripheral vascular disease) 09/07/2020 Resolved Problems Problem Noted Date Diagnosed Date Resolved Date Preop cardiovascular exam 09/07/2020 Encounters Date Type Department Care Team Description 04/11/2024 7:45 AM SCHOLARSHIP COUNSELOR - 04/11/2024 9:30 AM SCHOLARSHIP COUNSELOR Surgery [facility] Operating Room [address] [place] [address] Jay Jay Velez MD bronchoscopy with linear endobronchial ultrasound guided fine needle aspirate 04/11/2024 7:39 AM SCHOLARSHIP COUNSELOR Anesthesia Event [facility] Operating Room [address] [place] [address] Cammy Easley Jr., MD 04/11/2024 6:11 AM SCHOLARSHIP COUNSELOR - 04/11/2024 9:48 AM SCHOLARSHIP COUNSELOR Hospital Encounter [facility] Operating Room [address] [place] [address] Jay Jay Velez MD Mass of upper lobe of right lung (Primary Dx) Discharge Disposition: Discharge to home or self care 04/04/2024 10:00 AM SCHOLARSHIP COUNSELOR Office Visit [facility] Pulmonary at [address] [place] [phone] Jay Jay Velez MD Centrilobular emphysema (HCC) (Primary Dx); Solitary pulmonary nodule 04/02/2024 Ancillary Procedure [facility] Outside Films 04/01/2024 Orders Only [facility] Pulmonary at [address] [phone] Ondina Ramirez LPN Pulmonary nodules (Primary Dx) 03/29/2024 Telephone [facility] Pulmonary at [address] [phone] Ondina Ramirez LPN Scheduling Appointments from Last 3 Months Surgical History Surgery Date Site/Laterality Comments BYPASS GRAFT Bilateral Lower extremities OTHER SURGICAL HISTORY Penile Pump Medical History Medical History Date Comments Skin disorder Wears partial dentures Cataracts, bilateral Hyperlipidemia Lung nodule 03/2024 Type 2 diabetes mellitus (HCC) Family History Medical History Relation Name Comments Leukemia Father Arthritis Mother Relation Name Status Comments Father (Age 50's) Mother Alive Social History Tobacco Use Types Packs/Day Years Used Date Smoking Tobacco: Every Day Cigarettes Smokeless Tobacco: Never Tobacco Cessation:Ready to Q uit: Yes; Counseling Given: Yes AUDIT-C Answer Date Recorded Q1: How often do you have a drink containing alcohol? 4 or more times a week 04/11/2024 Q2: How many drinks containi ng alcohol do you have on a typical day when you are drinking? 5 or 6 Q3: How often do you have si x or more drinks on one occasion? Daily or almost daily 04/11/2024 Personal Safety Answer Date Recorded Have you ever been in or are you currently in a harmful physical or emotional relationship or is someone making you feel afraid or unsafe? Denies 04/11/2024 Sex and Gender Information Value Date Recorded Sex Assigned at Not on file Legal Sex Male 10:28 AM SCHOLARSHIP COUNSELOR Gender Identity Not on file Sexual Orientation Not on file Obstetrics History Last Filed Vital Signs Vital Sign Reading Time Taken Comments Blood Pressure 157/60 04/11/2024 9:33 AM SCHOLARSHIP COUNSELOR Pulse 100 04/11/2024 9:33 AM SCHOLARSHIP COUNSELOR Temperature 36.6 ??C (97.8 ??F) 04/11/2024 9:33 AM CS T Respiratory Rate 18 04/11/2024 9:33 AM SCHOLARSHIP COUNSELOR Oxygen Saturation 93% 04/11/2024 9:33 AM SCHOLARSHIP COUNSELOR Inhaled Oxygen Concentration - - Weight 93.2 kg (205 lb 7.5 oz) 04/11/2024 6:24 A M SCHOLARSHIP COUNSELOR Height 170.2 cm (5' 7 ) 04/11/2024 6:24 AM SCHOLARSHIP COUNSELOR Body Mass Index 32.18 04/11/2024 6:24 AM SCHOLARSHIP COUNSELOR Plan of Treatment Health Maintenance Due Date Last Done Comments Colon Cancer Screening-Colonoscopy 1950 Depression Screening 1950 Hepatitis C Screening 1950 Pneumococcal vaccine 65+ (1 of 2 - PCV) 1957 DTaP/Tdap/Td Vaccine (1 - Tdap) 1962 Hepatitis B Screening 1969 Zoster Vaccine (1 of 2) 2001 Abdominal Aortic Aneurysm (AAA) Screen 2016 Well Visit 65+ 2016 Influenza Vaccine (#1) 2023 Fall Risk Assessment 04/04/2025 04/04/2024 Procedures Procedure Name Priority Date/Time Associated Diagnosis Comments POCT GLUCOSE DEVICE Routine 04/11/2024 8 :29 AM SCHOLARSHIP COUNSELOR OR AN ELECTIVE ENDOTRACHEAL AIRWAY Routine 04/11/2024 7:54 AM SCHOLARSHIP COUNSELOR BRONCHOSCOPY ENDOBRONCHIAL ULTRASOUND 04/11/2024 7:40 AM SCHOLARSHIP COUNSELOR Mass of upper lobe of right lung ECG 12-LEAD Routine 04/11/2024 6:47 AM SCHOLARSHIP COUNSELOR POCT GLUCOSE DEVICE Routine 04/11/2024 6 :37 AM SCHOLARSHIP COUNSELOR CYTOLOGY Routine 04/11/2024 12:00 AM SCHOLARSHIP COUNSELOR Mass of upper lobe of right lung CT BODY OUTSIDE REFERENCE Routine 04/02/2024 12:00 AM SCHOLARSHIP COUNSELOR from Last 3 Months Results * POCT glucose (04/11/2024 8:29 AM SCHOLARSHIP COUNSELOR) Glucose, POC 110 70 - 199 mg/dL Blood 04/11/2024 8:29 AM SCHOLARSHIP COUNSELOR 04/11/2024 8:29 AM SCHOLARSHIP COUNSELOR us Jay Jay Velez MD LAB POCT ORDERABLES - DEVICE Fin al Result [facility] [place]) 1 [facility] Department [place] [address] * OR AN ELECTIVE ENDOTRACHEAL AIRWAY (04/11/2024 7:54 AM SCHOLARSHIP COUNSELOR) Narrative Johnathan Estrella CRNA - 04/11/2024 7:54 AM SCHOLARSHIP COUNSELOR Johnathan Estrella HEALTH RECORDS TECHNOLOGY TEACHER ? 04/11/2024 ??7:55 AM Airway Patient location: OR Urgency: elective Indications for airway management: anesthesia and airway protection Difficult airway: no Staff: Placed by: HEALTH RECORDS TECHNOLOGY TEACHER: Johnathan Estrella CRNA Emergent airway documentation: Risks and benefits discussed: yes Consent obtained: yes Consent given by: patient Airway prep: Preoxygenated: yes Patient position: sniffing Mask difficulty assessment: 2 - vent by mask + OA or adjuvant Spontaneous ventilation during airway: absent Sedation level during airway: GA Final airway details: Final airway type: endotracheal airway Tube type: ETT ETT size: 8.5 mm Cuffed: yes Technique used for successful ETT placement: video laryngoscopy Devices/Methods used in placement: intubating stylet Insertion site: oral Blade type: Bienvenido Video blade type: Hutchison Blade size: 4 Cormack-Lehane (video): grade I - full view of glottis Cuff volume: 8 mL Cuff inflated with: air ETT to lips: 21 cm Placement verified by: auscultation and CO2 detection Airway secured with: silk tape Number of attempts: 1 Planned trial extubation: yes Additional comments: Atraumatic intubation us Cammy Easley Jr., MD ANESTHESIA ORDER CLARA Final Result * ECG 12 lead (04/11/2024 6:47 AM SCHOLARSHIP COUNSELOR) 04/11/2024 6:47 AM SCHOLARSHIP COUNSELOR Narrative [facility] - 04/11/2024 10:32 AM SCHOLARSHIP COUNSELOR Vent Rate: 82 bpm RR Interval: 731 msec OR Interval: 194 msec QRS Duration: 105 msec QT Interval: 367 msec QTC Interval: 405 msec P-R-T [place]: 87 - 60 - 38 degrees IMPRESSION: SINUS RHYTHM WITH OCCASIONAL VENTRICULAR PREMATURE COMPLEXES BORDERLINE ECG Electronically Signed By: Cleve Beck MD Ashleigh Thompson MD ECG ORDERABLES Final Re sult [facility] * POCT glucose (04/11/2024 6:37 AM SCHOLARSHIP COUNSELOR) Glucose, POC 115 70 - 199 mg/dL Blood 04/11/2024 6:37 AM SCHOLARSHIP COUNSELOR 04/11/2024 6:37 AM SCHOLARSHIP COUNSELOR us Jay Jay Velez MD LAB POCT ORDERABLES - DEVICE Fin al Result [facility]) [address] [place] [address] Department [place] [address] * Cytology (04/11/2024 12:00 AM SCHOLARSHIP COUNSELOR) Fluid (Lymph Node (Cytology)) 04/11/2024 7:53 AM SCHOLARSHIP COUNSELOR Narrative PATHOLOGY [facility] ([place]) - 04/15/2024 12:05 PM SCHOLARSHIP COUNSELOR EPIC results best viewed via link to PDF [facility] Department of Pathology [address] [place] [id number] Note to Patients: ??This report may contain a detailed description of human tissue sent by a health care provider to the laboratory for pathologic evaluation. ??The content of this report is essential for diagnosis and may provide important critical findings. ??This information may be unfamiliar to patients to review without a medical professional present. ?? It is advised that the patient review this report in the presence of a health care provider who can answer questions and explain the details. Final Report with Addendum Patient Name: ??MUKESH GARRETT Address: ??[address] [place] [address] Gender: ??M : ??1950 (Age: 73) Service: ??Surgery Location: ??[facility] Hospital # ??[id number] Patient Type: ??[facility] Taken: ??04/11/2024 Received: ?? 04/11/2024 Accessioned: ?? 04/11/2024 Reported: ?? 04/15/2024 Physician(s): ??Jay Jay Velez M.D. Diagnosis: Lymph node, station 4R, fine needle aspiration: ? - Positive for metastatic adenocarcinoma, lung primary. Rowdy Lee M.D. Report Electronically Reviewed and Signed Out By ??Rowdy Lee M.D. ??04/15/2024 12:05:50EMMETT Dye([facility])Addenda: Archive Tissue Molecular Test Addendum Comment A request for Molecular Archival Tissue Testing was received, which is to be performed on tissue from the attached case. The associated original pathology report, slides, and blocks were retrieved from archives. The pathologist (whose signature appears below) reviewed the original pathology report, examined the H&E slides, and selected the appropriate block for the specifications of the ordered molecular analysis. Materials were forwarded to [facility] where the testing will be performed. Note: Refer to scanned physician request. Rowdy Lee M.D.Report Electronically Reviewed and Signed Out By ??Rowdy Lee M.D. ??05/02/2024 11:39:35 ?? Specimen(s) Received: A: FNA, Endobronchial ultrasound-guided, 4R Clinical History: The patient is a 73 year old male with mass of upper lobe of right lung. Immediate Assessment: Site A: ??4R ??Pass #1, diagnosis: ??Positive for malignant cells. Rowdy Lee M.D. Gross Description: 1 container labeled 4R Lymph Node received with 50 cc red fluid. ??2 slides received from 1 pass. ??Entire specimen processed. 1 ThinPrep and 1 cell block made. Microscopic Description: Sections show scattered groups of malignant appearing epithelioid cells in a background of fibrin and blood. ??The cells appear cohesive and enlarged compatible with a non-small cell carcinoma. ??In order to classify the malignant cells further, a panel of immunohistochemical stains was performed with adequate controls. ??The lesional cells are positive for pancytokeratin AE1/AE3, TTF-1 and Napsin-A. ??They are negative for p40 and CK5/6. ??The findings are compatible with a metastatic adenocarcinoma from a lung primary. ?? The performance characteristics of some immunohistochemical stains, fluorescence in-situ hybridization tests and immunophenotyping by flow cytometry cited in this report (if any) were determined by the Surgical Pathology Department at [facility] as part of an ongoing plant quality manager program and in compliance with federally mandated regulations drawn from the Clinical Laboratory Improvement Act of 1988 (CLIA '88). ??Some of these tests rely on the use of analyte specific reagents and are subject to specific labeling requirements by the US Food and Drug Administration. ??Such diagnostic tests may only be performed in a facility that is certified by the Department of Health and Human Services as a high complexity laboratory under CLIA '88. The FDA has determined that such clearance or approval is not necessary. ??This test is used for clinical purposes. ??It should not be regarded as investigational or for research. ??Nevertheless, federal rules concerning the medical use of analyte specific reagents require that the following disclaimer be attached to the report: This test was developed and its performance characteristics determined by the Surgical Pathology Department [facility]. ??It has not been cleared or approved by the U. S. Food and Drug Administration. Unless otherwise noted all cytology processing, staining and screening is performed at [facility] ([address] [place] [address]). REPORT IMAGES AND SCANNED DOCUMENTS, IF INCLUDED, ONLY VIEWABLE IN PDF VERSION OF REPORT us Jay Jay Velez MD LAB CYTOLOGY ORDERABLES Final Re sult Performing Organization Address [facility] Co de Phone Number PATHOLOGY [facility] ([place]) [address] [place] [address] * CT Body Outside Reference (04/02/2024 12:00 AM SCHOLARSHIP COUNSELOR) Narrative [facility] - 04/04/2024 7:59 AM SCHOLARSHIP COUNSELOR This order has been auto-finalized and does not contain a result. us Not In File Miscellaneous IMG CT PROCEDURES Patricia l Result Performing Organization Address [facility] de Phone Number [facility] from Last 3 [place] [address] [employer] MEDICARE GOLD AETNA MEDICARE GOLD Care Teams Knife Setter Assembler Relationship Specialty Start Date End Date Emily Hensley MD PCP - General Family Practice 08/21/20 Britany Webber MD [address] [facility] [address] [place] [address] Consulting Physician Critical Care Med 04/18/24
--- OUTSIDE RECORDS SUMMARY | 2024-05-16 01:59 | XMS_ITS | Encounter Summary ---
Author Organization [facility] Bur[facility] Address [address] [place] [address] Care Team Providers Care Staff Nuclear Weapons Officer Name Role Phone Emily Hensley MD Primary Care Provider Encounter Details Date Type Department Care Team (Late st Contact Info) Description 05/06/2024 Orders Only [facility] Oncology and Hematology [address] [place] [address] Jose Gates MD [address] [place], [place] [address] [place] [phone] Social History Tobacco Use Types Packs/Day Years Used Date Smoking Tobacco: Every Day Cigarettes 0.3 60 Started: [birth year]01/1963 Alcohol Use Standard Drinks/Week Comments Yes 28 (1 standard drink = 0.6 oz pu re alcohol) Sex and Gender Information Value Date Recorded Sex Assigned at Not on file Legal Sex Male 2:16 PM CHIN STRAP SEWER Gender Identity Not on file Sexual Orientation Not on file documented as of this encounter Plan of Treatment Upcoming Encounters Date Type Department Care Team (Late st Contact Info) Description 05/23/2024 2:00 PM CHIN STRAP SEWER Office Visit [facility] Oncology and Hematology - [address] [place] [phone] Jose Gates MD [address] [place] [phone] documented as of this encounter Procedures Procedure Name Priority Date/Time Associated Diagnosis Comments COMPREHENSIVE METABOLIC PANEL Routine 05/02/2024 1:08 PM CHIN STRAP SEWER CBC WITH AUTODIFFERENTIAL Routine 2024 1:04 PM CHIN STRAP SEWER documented in this encounter Results * COMPREHENSIVE METABOLIC PANEL (05/02/2024 1:08 PM CHIN STRAP SEWER) Blood Jose Gates MD CHEMISTRY ORDERABLES Final Resu lt * CBC WITH AUTODIFFERENTIAL (05/02/2024 1:04 PM CHIN STRAP SEWER) Blood Jose Gates MD HEMATOLOGY ORDERABLES Final Res ult documented in this encounter Visit Diagnoses Not on filedocumented in this encounter Care Teams Staff Nuclear Weapons Officer Relationship Specialty Start Date End Date Emily Hensley MD [address] [place] [phone] PCP - General Family Practice 05/03/24 documented as of this encounter
--- OUTSIDE RECORDS SUMMARY | 2024-05-16 01:59 | XMS_ITS | Clinical Summary ---
Author Organization [facility]el [facility] Address [address] [place] [address] Care Team Providers Care Supervisor Liquefaction Name Role Phone Emily Hensley MD Primary Care Provider Allergies Active Allergy Reactions Criticality Noted Date Comments Meloxicam Syncope Medium 11/09/2020 Medications aspirin (ECOTRIN EC) 81 mg Tablet, Delayed Release (E.C.) Take 1 Tablet by mouth daily. 3 Active atorvastatin (LIPITOR) 20 mg tablet Take 20 mg by mouth daily. 4 Active azelastine (ASTELIN) 137 mcg/actuation nasal spray Administer 1 [place] in each nostril 2 times daily. 4 Active Blood-Glucose Sensor (Dexcom G7 Sensor) Device 4 Active cholecalciferol , Vitamin D3, 125 mcg (5,000 unit) Capsule Take 5,000 Units by mouth daily. Active Jardiance 25 mg tablet Take 25 mg by mouth. 4 Active glipiZIDE (GLUCOTROL XL) 10 mg Extended Release 24 hour tablet Take 10 mg by mouth daily. 4 Active lisinopriL (PRINIVIL) 5 mg tablet Take 5 mg by mouth daily. 4 Active metFORMIN (GLUCOPHAGE XR) 500 mg Extended Release 24 hour tablet Take 1,000 mg by mouth daily at bedtime. 4 Active traMADoL (ULTRAM) 50 mg tablet Take 50 mg by mouth. Active albuterol sulfate 90 mcg/actuation metered powder inhaler Take by inhalation. Active Active Problems No known active problems Encounters Date Type Department Care Team Description 05/14/2024 Chart Note [facility] Emergency Department - [address] [address] Patrick Kate MD 05/09/2024 Orders Only [facility] Oncology and Hematology - [place] [address] [place] [address] Jose Gates MD 05/07/2024 External Device Data STL ABSTRACTION Provider, Abstract 05/07/2024 Chart Note [facility] Emergency Department - [address] [address] Patrick Kate MD 05/06/2024 Orders Only [facility] Oncology and Hematology - [place] [address] [place] [address] Jose Gates MD 05/01/2024 3:00 PM BALE OPENER Office Visit [facility] Oncology and Hematology [facility] [address] [place] [address] Jose Gates MD Malignant neoplasm of lung, unspecified laterality, unspecified part of lung (CMS/HCC) (Primary Dx) from Last 3 Months Family History Medical History Relation Name Comments Cancer Brother No Known Problems Child Leukemia Father No Known Problems Mother Relation Name Status Comments Brother Alive Child Alive Father Mother Alive Social History Tobacco Use Types Packs/Day Years Used Date Smoking Tobacco: Every Day Cigarettes 0.3 60 Started: 05/01/1963 Alcohol Use Standard Drinks/Week Comments Yes 28 (1 standard drink = 0.6 oz pu re alcohol) Sex and Gender Information Value Date Recorded Sex Assigned at Not on file Legal Sex Male 2:16 PM BALE OPENER Gender Identity Not on file Sexual Orientation Not on file Last Filed Vital Signs Vital Sign Reading Time Taken Comments Blood Pressure 129/69 05/01/2024 3:53 PM BALE OPENER Pulse 97 05/01/2024 3:53 PM BALE OPENER Temperature 36.4 ??C (97.6 ??F) 05/01/2024 3:53 PM CS T Respiratory Rate 18 05/01/2024 3:53 PM BALE OPENER Oxygen Saturation 96% 05/01/2024 3:53 PM BALE OPENER Inhaled Oxygen Concentration - - Weight 94.3 kg (208 lb) 05/01/2024 3:53 PM BALE OPENER Height 170.2 cm (5' 7 ) 05/01/2024 3:53 PM BALE OPENER Body Mass Index 32.58 05/01/2024 3:53 PM BALE OPENER Plan of Treatment Upcoming Encounters Date Type Department Care Team (Late st Contact Info) Description 05/23/2024 2:00 PM BALE OPENER Office Visit [facility] Oncology and Hematology - [place] [address] [place] [address] Jose Gates MD [address] [place] [address] Health Maintenance Due Date Last Done Comments DTAP/TDAP/TD VACCINES (1 - Tdap) 1970 PNEUMOCOCCAL VACCINE 65+ YEARS (1 of 2 - PCV) 04/21/19 70 COLORECTAL SCREENING 1996 Colorectal Cancer Screening 1996 FIT-DNA Q 3 years 1996 FIT/FOBT Q 1 year 1996 Flex Sig/CT Colonography Q 5 years 1996 ZOSTER VACCINE (1 of 2) 2001 RSV VACCINE (60+ or ) (1 - Risk 60-74 years 1-dose series) 2011 Abdominal Aortic Aneurysm (AAA) Screening 2016 INFLUENZA VACCINE (#1) 2023 Procedures Procedure Name Priority Date/Time Associated Diagnosis Comments TEMPUS XF Routine 05/14/2024 7:55 PM BALE OPENER Malignant neoplasm of lung, unspecified laterality, unspecified part of lung (CMS/HCC) PET BONE IMG W CT SKL BSE MID THG Routine 05/09/2024 2:03 PM BALE OPENER COMPREHENSIVE METABOLIC PANEL Routine 05/02/2024 1:08 PM BALE OPENER CBC WITH AUTODIFFERENTIAL Routine 05/02/2024 1:04 PM BALE OPENER [facility]T NORMAL BLOOD Routine 4:57 PM BALE OPENER Malignant neoplasm of lung, unspecified laterality, unspecified part of lung (CMS/HCC) from Last 3 Months Results * TEMPUS XF (05/14/2024 7:55 PM BALE OPENER) Reason for Study To identify mutations relevant to patient's cancer. 05/14/2024 7:55 PM BALE OPENER [facility] Genetic Diseases Assessed Cancer 05/14/2024 7:55 PM BALE OPENER [facility] Description of Ranges of DNA Sequences Examined 105 gene liquid biopsy 05/14/2024 7:55 PM BALE OPENER [facility] Overall Interpretation positive 05/14/2024 7:55 PM BALE OPENER [facility] Portal [email or web address] [email or web address] [email or web address] [email or web address] 05/14/2024 7:55 PM BALE OPENER [facility] Comment:[facility] link Low Coverage Regions JAK1, TERT 05/14/2024 7:55 PM BALE OPENER [facility] Trial Count 1 05/14/2024 7:55 PM BALE OPENER [facility] Tempus: Clinical Trial Match 1 Clinical Trial NCT ID: [id number] Clinical Trial Title: 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 05/14/2024 7:55 PM BALE OPENER [facility] Blood specimen (specimen) 05/07/2024 9:30 PM BALE OPENER Narrative This result has genomic variants that were not included in this document. Jose Gates MD MOLECULAR ORDERABLES Final Resu lt [facility] [address], [address] [place] [address], [place] [phone] [facility] [address], [address] [place] [address] * PET BONE IMG W CT SKB MDTH (05/09/2024 2:03 PM BALE OPENER) Anatomical Region Laterality Modality Other us Jose Gates MD PE ORDERABLES Final Result * COMPREHENSIVE METABOLIC PANEL (05/02/2024 1:08 PM BALE OPENER) Blood us Jose Gates MD CHEMISTRY ORDERABLES Final Resu lt * CBC WITH AUTODIFFERENTIAL (05/02/2024 1:04 PM BALE OPENER) Blood us Jose Gates MD HEMATOLOGY ORDERABLES Final Res ult * [facility] XT NORMAL BLOOD (05/01/2024 4:57 PM BALE OPENER) [facility] Portal 05/01/2024 11:00 PM BALE OPENER [facility] Comment:See NGS Report for R esults. Blood specimen (specimen) 05/01/2024 4:57 PM BALE OPENER 05/01/2024 4:58 PM BALE OPENER us Jose Gates MD MOLECULAR ORDERABLES Final Resu lt [facility] [address], [address] [place] [address], [place] [phone] [facility] [address], [address] [place] [address] from Last 3 Months Insurance [facility] [id number] [facility] Care Teams Supervisor Liquefaction Relationship Specialty Start Date End Date Emily Hensley MD [address] [place] [address] PCP - General Family Practice 05/03/24
--- OUTSIDE RECORDS SUMMARY | 2024-05-16 01:59 | XMS_ITS | Referral Summary ---
Author Organization [facility] [address] Address [address] [place] [address] Care Team Providers Care Valve Setter Name Role Phone Emily Hensley MD Primary Care Provider Britany Webber MD Unavailable Encounters Date Type Department Care Team Description 04/11/2024 7:45 AM AUTOMOBILE DAMAGE APPRAISER - 04/11/2024 9:30 AM AUTOMOBILE DAMAGE APPRAISER Surgery [facility] Operating Room [address] [place] [address] Jay Jay Velez MD bronchoscopy with linear endobronchial ultrasound guided fine needle aspirate 04/11/2024 7:39 AM AUTOMOBILE DAMAGE APPRAISER Anesthesia Event [facility] Operating Room [address] [place] [address] Cammy Easley Jr., MD 04/11/2024 6:11 AM AUTOMOBILE DAMAGE APPRAISER - 04/11/2024 9:48 AM AUTOMOBILE DAMAGE APPRAISER Hospital Encounter [facility] Operating Room [address] [place] [address] Jay Jay Velez MD Mass of upper lobe of right lung (Primary Dx) Discharge Disposition: Discharge to home or self care 04/04/2024 10:00 AM AUTOMOBILE DAMAGE APPRAISER Office Visit [facility] Pulmonary at [address] [place] [address] Jay Jay Velez MD Centrilobular emphysema (HCC) (Primary Dx); Solitary pulmonary nodule 04/02/2024 Ancillary Procedure [facility] Outside Films 04/01/2024 Orders Only [facility] Pulmonary at [address] [place] [address] Ondina Ramirez LPN Pulmonary nodules (Primary Dx) 03/29/2024 Telephone [facility] Pulmonary at [address] [place] [address] Ondina Ramirez LPN Scheduling Appointments from Last 3 Months Allergies No known active allergies Medications albuterol [...] atorvastatin (LIPITOR) 20 mg tabletIndications: Atherosclerosis of [place] artery of both lower extremities with intermittent claudication (HCC) TAKE 1 TABLET(20 MG) BY MOUTH DAILY 90 tablet 2 4 Active azelastine (ASTELIN) 137 mcg (0.1 %) nasal spray Administer 1 spray into each nostril 2 (two) times a day 4 Active Dexcom G7 Sensor device 4 Active lisinopriL (PRINIVIL,ZESTRIL) 5 mg tablet Take 1 tablet (5 mg total) by mouth daily 4 Active traMADoL (ULTRAM) 50 mg tablet [...] Diagnosed Date Resolved Date Preop cardiovascular exam 09/07/20201 Social History Tobacco Use Types Packs/Day Years [...] on file Legal Sex Male 10:28 AM AUTOMOBILE DAMAGE APPRAISER Gender Identity Not on file Sexual Orientation Not on file Last Filed Vital Signs Vital Sign Reading Time Taken Comments Blood Pressure 157/60 04/11/2024 9:33 AM AUTOMOBILE DAMAGE APPRAISER Pulse 100 04/11/2024 9:33 AM AUTOMOBILE DAMAGE APPRAISER Temperature 36.6 ??C (97.8 ??F) 04/11/2024 9:33 AM CS T Respiratory Rate 18 04/11/2024 9:33 AM AUTOMOBILE DAMAGE APPRAISER Oxygen Saturation 93% 04/11/2024 9:33 AM AUTOMOBILE DAMAGE APPRAISER Inhaled Oxygen Concentration - - Weight 93.2 kg (205 lb 7.5 oz) 04/11/2024 6:24 A M AUTOMOBILE DAMAGE APPRAISER Height 170.2 cm (5' 7 ) 04/11/2024 6:24 AM AUTOMOBILE DAMAGE APPRAISER Body Mass Index 32.18 04/11/2024 6:24 AM AUTOMOBILE DAMAGE APPRAISER Plan of Treatment Not on file Procedures Procedure Name Priority Date/Time Associated Diagnosis Comments POCT GLUCOSE DEVICE Routine 04/11/2024 8 :29 AM AUTOMOBILE DAMAGE APPRAISER CO AN ELECTIVE ENDOTRACHEAL AIRWAY Routine 04/11/2024 7:54 AM AUTOMOBILE DAMAGE APPRAISER BRONCHOSCOPY ENDOBRONCHIAL ULTRASOUND 04/11/2024 7:40 AM AUTOMOBILE DAMAGE APPRAISER Mass of upper lobe of right lung ECG 12-LEAD Routine 04/11/2024 6:47 AM AUTOMOBILE DAMAGE APPRAISER POCT GLUCOSE DEVICE Routine 04/11/2024 6 :37 AM AUTOMOBILE DAMAGE APPRAISER CYTOLOGY Routine 04/11/2024 12:00 AM AUTOMOBILE DAMAGE APPRAISER Mass of upper lobe of right lung CT BODY OUTSIDE REFERENCE Routine 04/02/2024 12:00 AM AUTOMOBILE DAMAGE APPRAISER from Last 3 Months Results * POCT glucose (04/11/2024 8:29 AM AUTOMOBILE DAMAGE APPRAISER) Glucose, POC 110 70 - 199 mg/dL Blood 04/11/2024 8:29 AM AUTOMOBILE DAMAGE APPRAISER 04/11/2024 8:29 AM AUTOMOBILE DAMAGE APPRAISER us Jay Jay Velez MD LAB POCT ORDERABLES - DEVICE Fin al Result [facility] ([place]) [address] [facility] [place] [address] * CO AN ELECTIVE ENDOTRACHEAL AIRWAY (04/11/2024 7:54 AM AUTOMOBILE DAMAGE APPRAISER) Narrative Johnathan Estrella CRNA - 04/11/2024 7:54 AM AUTOMOBILE DAMAGE APPRAISER Johnathan Estrella CRNA ? 04/11/2024 ??7:55 AM Airway Patient location: OR Urgency: elective Indications for airway management: anesthesia and airway protection Difficult airway: no Staff: Placed by: TRAFFIC PERSONNEL SUPERVISOR: Johnathan Estrella CRNA Emergent airway documentation: Risks [...] * ECG 12 lead (04/11/2024 6:47 AM AUTOMOBILE DAMAGE APPRAISER) 04/11/2024 6:47 AM AUTOMOBILE DAMAGE APPRAISER Narrative [facility] - 04/11/2024 10:32 AM AUTOMOBILE DAMAGE APPRAISER Vent Rate: 82 bpm RR Interval: 731 msec CO Interval: 194 msec QRS Duration: 105 msec QT Interval: 367 msec QTC Interval: 405 msec P-R-T Nathalie: 87 - 60 - 38 degrees IMPRESSION: SINUS RHYTHM WITH OCCASIONAL VENTRICULAR PREMATURE COMPLEXES BORDERLINE ECG Electronically Signed By: Cleve Beck MD us Ashleigh Thompson MD ECG ORDERABLES Final Re sult Performing Organization Address City/[facility] Co de Phone Number [facility] * POCT glucose (04/11/2024 6:37 AM AUTOMOBILE DAMAGE APPRAISER) Glucose, POC 115 70 - 199 mg/dL Blood 04/11/2024 6:37 AM AUTOMOBILE DAMAGE APPRAISER 04/11/2024 6:37 AM AUTOMOBILE DAMAGE APPRAISER us Jay Jay Velez MD LAB POCT ORDERABLES - DEVICE Fin al Result Performing Organization Address City/[facility] Co de Phone Number [facility] ([address] Department [place] [address] * Cytology (04/11/2024 12:00 AM AUTOMOBILE DAMAGE APPRAISER) Fluid (Lymph Node (Cytology)) 04/11/2024 7:53 AM AUTOMOBILE DAMAGE APPRAISER Narrative PATHOLOGY [facility] ([place]) - 04/15/2024 12:05 PM AUTOMOBILE DAMAGE APPRAISER EPIC results best viewed via link to PDF [facility] Department of Pathology [address] [place] [address] Note to Patients: ??This report may contain [...] with Addendum Patient Name: ??MUKESH GARRETT Address: ??[address] [place] [address] [facility] [place] [facility] Gender: ??M : ??1950 (Age: 73) Service: ??Surgery Location: ??[facility] # ??[id number] Patient Type: ??[facility] Taken: ??04/11/2024 Received: ?? 04/11/2024 Accessioned: ?? 04/11/2024 Reported: ?? 04/15/2024 Physician(s): ??Jay Jay Velez M.D. Diagnosis: Lymph node, station 4R, fine needle aspiration: ? - Positive for metastatic adenocarcinoma, lung primary. Rowdy Lee M.D. Report Electronically Reviewed and Signed Out By ??Rowdy Lee M.D. ??04/15/2024 12:05:50EMMETT Dye([facility])Addenda: Archive Tissue Molecular Test Addendum Comment [...] ordered molecular analysis. Materials were forwarded to [facility] where the testing will be performed. [...] determined by the Surgical Pathology Department at [facility] as part of an ongoing corporate quality manager program and in compliance with [...] characteristics determined by the Surgical Pathology Department [facility]. ??It has not been cleared or approved by the U. S. Food and Drug Administration. Unless otherwise noted all cytology processing, staining and screening is performed at [facility] ([address] [place] [address]). REPORT IMAGES AND SCANNED DOCUMENTS, IF INCLUDED, ONLY VIEWABLE IN PDF VERSION OF REPORT Jay Jay Velez MD LAB CYTOLOGY ORDERABLES Final Re sult [facility]OLOGY [facility] ([place]) [address] [place] [address] * CT Body Outside Reference (04/02/2024 12:00 AM AUTOMOBILE DAMAGE APPRAISER) Narrative [facility] - 04/04/2024 7:59 AM AUTOMOBILE DAMAGE APPRAISER This order has been auto-finalized and does not contain a result. us Not In File Miscellaneous IMG CT PROCEDURES Patricia l Result [facility] from Last 3 Months Insurance [facility] MEDICARE GOLD [facility] MEDICARE GOLD Care Teams Valve Setter Relationship Specialty Start Date End Date Emily Hensley MD PCP - General Family Practice 08/21/20 Britany Webber MD [address] [facility] [address] [place] [address] Consulting Physician Critical Care Med 04/18/24
== END 2024-05-09 09:10 | disposition home or self-care (01) ==
PROVIDERS: PCP Family Medicine; Visit Provider Internal Medicine Hematology & Oncology
DX: C34.11 Malignant neoplasm of upper lobe, right bronchus or lung (principal); R59.9 Enlarged lymph nodes, unspecified; J43.9 Emphysema, unspecified
CPT/HCPCS: 78815; A9552

== ENCOUNTER 2024-09-13 09:04 | Outpatient (CLI) | payer MEDICARE, SELFPAY ==
--- NOTE | ~2024-09-13 | CT_ITS ---
Clinical Indication: Lung cancer CT Scan of the Chest with Contrast: Technique: Contiguous sections were acquired throughout the chest after intravenous administration of 75 cc of Omnipaque 350. Dose reduction technique was used on this scan by utilizing automated exposu re control and iterative reconstruction technique. The dose-length product (DLP) was 242.98 mGy-cm. COMPARISON: 04/02/2024 Findings: Right paratracheal lymphadenopathy is essentially unchanged, largest measuring 1.8 cm. There is no fi lling defect in the pulmonary arterial tree to suggest pulmonary embolus. There is no evidence of aor tic dissection or aneurysm. There is no evidence of pleural or pericardial effusion. Irregular nodule/consolidation the medial right upper lobe is mildly decreased in extent from prior e xam (axial image 33). There is a 1.9 cm mildly irregular nodule in the superior segment right lower l obe (axial image 51), similar in size to prior exam, but with filling in of the previous area of cavi tation. There is new irregular patchy groundglass opacity and consolidation in the adjacent superior segment right lower lobe and medial right lower lobe. Stable small cystic nodule or cavitary area in the peripheral left upper lobe (axial image 37). Images through the upper abdomen reveal no abnormalities. New small sclerotic lesions are present in the T12 vertebral body (sagittal image 81, 71). Impression: Irregular nodule/consolidation in the medial right upper lobe is mildly decreased from prior exam, co mpatible with partial response to therapy of bronchogenic carcinoma. Stable metastatic right paratracheal lymphadenopathy. 1.9 cm nodule in the superior segment right lower lobe is more confluent solid-appearing than prior e xam. This lesion is indeterminate, and could reflect synchronous or metastatic neoplastic lesion. Probable postradiation change or other pneumonitis in the superior segment and medial aspects of the right lower lobe. New small sclerotic lesions in the T12 vertebral body. These are suspicious for small metastatic osse ous lesions until proven otherwise. Continued follow-up advised. Stable small cystic nodule or cavitary area in the peripheral left upper lobe, as detailed above. Reviewed, dictated and finalized at location M. Impression: Irregular nodule/consolidation in the medial right upper lobe is mildly decreas ed from prior exam, compatible with partial response to therapy of bronchogenic carcinoma. Stable metastatic right paratracheal lymphadenopathy. 1.9 cm nodule in the superior segment right lower lobe is more confluent solid- appearing than prior exam. This lesion is indeterminate, and could reflect sync hronous or metastatic neoplastic lesion. Probable postradiation change or other pneumonitis in the superior segment and medial aspects of the right lower lobe. New small sclerotic lesions in the T12 vertebral body. These are suspicious for small metastatic osseous lesions until proven otherwise. Continued follow-up a dvised. Stable small cystic nodule or cavitary area in the peripheral left upper lobe, as detailed above.
--- OUTSIDE RECORDS SUMMARY | 2024-09-13 09:09 | XMS_ITS | Encounter Summary ---
Author Organization [facility] Address [address] [place] [address] Care Team Providers Care Food Service Cashier Name Role Phone Emily Hensley MD Primary Care Provider Encounter Details Date Type Department Care Team (Late st Contact Info) Description 09/10/2024 External Device Data STL ABSTRACTION Provider, Abstract NO ADDRESS ON FILE Social History Tobacco Use Types Packs/Day Years Used Date Smoking Tobacco: Former Cigarettes 0.3 60.1 0 05/01/1964 - 06/22/2024 Alcohol Use Standard Drinks/Week Comments Yes 28 (1 standard drink = 0.6 oz pure alcohol) patient reports not drinking at all anymore Sex and Gender Information Value Date Recorded Sex Assigned at Not on file Legal Sex Male 2:16 PM 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 ERECTOR HELPER Gender Identity Not on file Sexual Orientation Not on file documented as of this encounter Plan of Treatment Upcoming Encounters Date Type Department Care Team (Late st Contact Info) Description 09/19/2024 9:45 AM CDT Office Visit [facility] Oncology and Hematology - [place] [address] [facility] [address] [place] [address] Jose Gates MD [address] [facility] [address] [place] [address] documented as of this encounter Visit Diagnoses Not on filedocumented in this encounter Care Teams Food Service Cashier Relationship Specialty Start Date End Date Emily Hensley MD [address] [place] [address] PCP - General Family Practice 05/03/24 documented as of this encounter
--- OUTSIDE RECORDS SUMMARY | 2024-09-13 09:09 | XMS_ITS | CONTINUITY OF CARE DOCUMENT ---
Author Name johnnie blair Address Unknown Organization [facility] Address [address], [place] [address] Phone [phone] Care Team Providers Care Sanitation Associate Name Role Phone johnnie blair Unavailable Unavailable INSURANCE PROVIDERS Payer name Policy type / Coverage type [place] [employer] party ID [facility] [id number] insurance company [id number]
--- OUTSIDE RECORDS SUMMARY | 2024-09-13 09:09 | XMS_ITS | Encounter Summary ---
Author Organization [facility] Address [address] [place] [address] Care Team Providers Care Canvass Manager Name Role Phone Emily Hensley MD Primary Care Provider Britany Webber MD Unavailable [phone] Encounter Details Date Type Department Care Team (Late st Contact Info) Description 07/12/2024 Results Follow-Up [facility] Pulmonary at [address] [place] [address] Ondina Ramirez LPN Cytology Social History Tobacco Use Types Packs/Day Years Used Date Smoking Tobacco: Every Day Cigarettes Smokeless Tobacco: Never AUDIT-C Answer Date Recorded Q1: How often [...] on file Legal Sex Male 10:28 AM ASSISTANT DIRECTOR OF PUBLIC WORKS Gender Identity Not on file Sexual Orientation Not on file documented as of this encounter Plan of Treatment Not on file documented as of this encounter Visit Diagnoses Not on filedocumented in this encounter Care Teams Canvass Manager Relationship Specialty Start Date End Date Emily Hensley MD PCP - General Family Practice 08/21/20 Britany Webber MD [address] [facility] [address] [place] [address] Consulting Physician Critical Care Med 04/18/24 documented as of this encounter
--- OUTSIDE RECORDS SUMMARY | 2024-09-13 09:09 | XMS_ITS | Encounter Summary ---
Author Organization [facility] Address [address] [place] [address] Care Team Providers Care Income Auditor Name Role Phone Emily Hensley MD Primary Care Provider Britany Webber MD Unavailable [phone] Reason for Referral * MRI/CAT/PET Scan (Routine) - Pending Review Specialty Diagnoses / Procedures Referred By Contac t Referred To Contact Radiology Diagnoses Elevated prostate specific antigen (PSA) Procedures MRI PELVIS PROSTATE W WO CONTRAST Dashawn Collins MD [address] [address] Phone: tel: fax: [address] [address] Referral ID Status Reason Start Date Expiration Date V isits Requested Visits Authorized [id number] Pending Review 05/28/2024 06/27/2025 1 1 E INSURANCE SALES REPRESENTATIVE Encounter Details Date Type Department Care Team (Late st Contact Info) Description 05/28/2024 Community Orders [facility] Link Dashawn Collins MD [address] [address] Elevated prostate specific antigen (PSA) (Primary Dx) Social History Tobacco Use Types Packs/Day Years [...] on file Legal Sex Male 10:28 AM TITLE INSURANCE SALES REPRESENTATIVE Gender Identity Not on file Sexual Orientation Not on file documented as of this encounter Plan of Treatment Scheduled Orders Name Type Priority Associated Diagnoses Orde r Schedule MRI PELVIS PROSTATE W WO CONTRAST Imaging Schedule Routine, Read Routine (OP Routine) Elevated prostate specific antigen (PSA) Expected: 05/28/2024, Expires: 05/28/2025 documented as of this encounter Visit Diagnoses Diagnosis Elevated prostate specific antigen (PSA)- Primary documented in this encounter Care Teams Income Auditor Relationship Specialty Start Date End Date Emily Hensley MD PCP - General Family Practice 08/21/20 Britany Webber MD [address] [facility] [address] [place] [address] Consulting Physician Critical Care Med 04/18/24 documented as of this encounter
--- OUTSIDE RECORDS SUMMARY | 2024-09-13 09:09 | XMS_ITS | Clinical Summary ---
Author Organization [facility] [address] Address [address] [place] [address] Care Team Providers Care Charge Preparation Technician Name Role Phone Emily Hensley MD Primary Care Provider Britany Webber MD Unavailable [phone] Allergies No known active allergies Medications albuterol [...] XL) 10 mg 24 hr tablet Take 5 mg by mouth daily 4 Active Jardiance 25 mg tablet Take 1 tablet (25 mg total) by mouth every morning 4 Active cholecalciferol (VITAMIN D-3) 5,000 unit capsule Take 1 capsule (5,000 Units total) by mouth daily Active azelastine (ASTELIN) 137 mcg (0.1 %) nasal spray Administer 1 spray into each nostril 2 (two) times a day 4 Active Dexcom G7 Sensor device 4 Active traMADoL (ULTRAM) 50 mg tablet Take 1 tablet (50 mg total) by mouth every 6 (six) hours as needed for pain Active atorvastatin (LIPITOR) 20 mg tabletIndications: Atherosclerosis of [place] artery of both lower extremities with intermittent claudication TAKE 1 TABLET(20 MG) BY MOUTH DAILY 90 tablet 2 Active folic acid (FOLVITE) 1 mg tablet Take 1 tablet (1 mg total) by mouth daily Active Active Problems Problem Noted Date Diagnosed Date Lipid screening declined by patient 07/29/2024 Mixed hyperlipidemia 07/29/2024 Mass of upper lobe of right lung 04/04/2024 Tobacco use 09/07/2020 PVC (premature ventricular contraction) 09/08/19 PVD (peripheral vascular disease) 09/07/2020 Resolved Problems Problem Noted Date Diagnosed Date Resolved Date Preop cardiovascular exam 09/07/2020 Encounters Date Type Department Care Team Description 07/29/2024 10:45 AM CDT Office Visit [facility] Cardiology [address] [place] [address] Estrada Bills MD PVC (premature ventricular contraction) (Primary Dx); PVD (peripheral vascular disease); Tobacco use; Lipid screening declined by patient; Mixed hyperlipidemia 07/12/2024 Results Follow-Up [facility] Pulmonary at [address] [place] [address] Ondina Ramirez LPN Cytology from Last 3 Months Surgical History Surgery [...] on file Legal Sex Male 10:28 AM NUT ROASTER Gender Identity Not on file Sexual Orientation Not on file Obstetrics History Last Filed Vital Signs Vital Sign Reading Time Taken Comments Blood Pressure 100/52 07/29/2024 10:52 AM CDT Pulse 100 07/29/2024 10:52 AM CDT Temperature 36.6 C (97.8 F) 04/11/2024 9:33 AM NUT ROASTER Respiratory Rate 18 04/11/2024 9:33 AM NUT ROASTER Oxygen Saturation 98% 07/29/2024 10:52 AM CDT Inhaled Oxygen Concentration - - Weight 83 kg (183 lb) 07/29/2024 10:52 AM CDT Height 172.7 cm (5' 8 ) 07/29/2024 10:52 AM CDT Body Mass Index 27.83 07/29/2024 10:52 AM CDT Plan of Treatment Health Maintenance Due Date Last Done Comments Colon Cancer Screening-Colonoscopy 1950 Depression Screening 1950 Hepatitis C Screening 1950 DTaP/Tdap/Td Vaccine (1 - Tdap) 1962 Hepatitis B Screening 1969 Pneumococcal vaccine 65+ (1 of 2 - PCV) 1970 Zoster Vaccine (1 of 2) 2001 Abdominal Aortic Aneurysm (AAA) Screen 2016 Well Visit 65+ 2016 Influenza Vaccine (Season Ended) 2024 Fall Risk Assessment 04/04/2025 04/04/2024 Insurance [employer] MEDICARE GOLD AETNA MEDICARE GOLD Care Teams Charge Preparation Technician Relationship Specialty Start Date End Date Emily Hensley MD PCP - General Family Practice 08/21/20 Britany Webber MD [address] [place] [address] Consulting Physician Critical Care Med 04/18/24
--- OUTSIDE RECORDS SUMMARY | 2024-09-13 09:09 | XMS_ITS | Encounter Summary ---
Author Organization [facility] Burris [facility] Address [address] [place] [address] Care Team Providers Care System Analyst Name Role Phone Emily Hensley MD Primary Care Provider Encounter Details Date Type Department Care Team (Late st Contact Info) Description 09/09/2024 Orders Only [facility] Oncology and Hematology - [address] [place] [address] Jose Gates MD [facility] [address] [place] [address] Malignant neoplasm of lung, unspecified laterality, unspecified part of lung (CMS/HCC) Social History Tobacco Use Types Packs/Day Years Used Date Smoking Tobacco: Former Cigarettes 0.3 60.1 0 05/01/1964 - 06/22/2024 Alcohol Use Standard Drinks/Week Comments Yes 28 (1 standard drink = 0.6 oz pure alcohol) patient reports not drinking at all anymore Sex and Gender Information Value Date Recorded Sex Assigned at Not on file Legal Sex Male 2:16 PM INTERNATIONAL LOGISTICS COORDINATOR Gender Identity Not on file Sexual Orientation Not on file documented as of this encounter Plan of Treatment Upcoming Encounters Date Type Department Care Team (Late st Contact Info) Description 09/19/2024 9:45 AM CDT Office Visit [facility] Oncology and Hematology - [place] [address] [place] [address] Jose Gates MD [address] [place] [phone] documented as of this encounter Visit Diagnoses Diagnosis Malignant neoplasm of lung, unspecified laterality, unspecified part of lung (CMS/HCC) documented in this encounter Care Teams System Analyst Relationship Specialty Start Date End Date Emily Hensley MD [address] [place] [address] PCP - General Family Practice 05/03/24 documented as of this encounter
--- OUTSIDE RECORDS SUMMARY | 2024-09-13 09:10 | XMS_ITS | Referral Summary ---
Author Organization [facility] [address] [facility] [address] Address [address] [place] [address] Care Team Providers Care Pan Cleaner Name Role Phone Emily Hensley MD Primary Care Provider Britany Webber MD Unavailable [phone] Encounters Date Type Department Care Team Description 07/29/2024 10:45 AM CDT Office Visit [facility] Cardiology [address] [facility] [address] [place] [address] Estrada Bills MD PVC (premature ventricular contraction) (Primary Dx); PVD (peripheral vascular disease); Tobacco use; Lipid screening declined by patient; Mixed hyperlipidemia 07/12/2024 Results Follow-Up [facility] Pulmonary at [address] [place] [address] Ondina Ramirez LPN Cytology from Last 3 Months Allergies No known [...] atorvastatin (LIPITOR) 20 mg tabletIndications: Atherosclerosis of [place] artery of both lower extremities with intermittent claudication TAKE 1 TABLET(20 MG) BY MOUTH DAILY 90 tablet 2 5 Active folic acid (FOLVITE) 1 mg tablet [...] Date Resolved Date Preop cardiovascular exam 09/07/2020 Social History Tobacco Use Types Packs/Day Years [...] on file Legal Sex Male 10:28 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 Gender Identity Not on file Sexual Orientation Not on file Last Filed Vital Signs Vital Sign Reading Time Taken Comments Blood Pressure 100/52 07/29/2024 10:52 AM CDT Pulse 100 07/29/2024 10:52 AM CDT Temperature 36.6 C (97.8 F) 04/11/2024 9:33 AM MASTER SCHEDULER Respiratory Rate 18 04/11/2024 9:33 AM MASTER SCHEDULER Oxygen Saturation 98% 07/29/2024 10:52 AM CDT Inhaled Oxygen Concentration - - Weight 83 kg (183 lb) 07/29/2024 10:52 AM CDT Height 172.7 cm (5' 8 ) 07/29/2024 10:52 AM CDT Body Mass Index 27.83 07/29/2024 10:52 AM CDT Plan of Treatment Not on file Insurance [facility] MEDICARE [facility] MEDICARE GOLD Care Teams Pan Cleaner Relationship Specialty Start Date End Date Emily Hensley MD PCP - General Family Practice 08/21/20 Britany Webber MD [address] [facility] [address] [place] [address] Consulting Physician Critical Care Med 04/18/24
--- OUTSIDE RECORDS SUMMARY | 2024-09-13 09:10 | XMS_ITS | Clinical Summary ---
Author Organization [facility] Address [address] [place] [address] Care Team Providers Care Polishing Wheel Repairer Name Role Phone Emily Hensley MD Primary Care Provider Allergies Active Allergy Reactions Criticality Noted Date Comments Meloxicam Syncope Medium 11/09/2020 Medications aspirin (ECOTRIN EC) 81 mg Tablet, Delayed Release (E.C.) Take 1 Tablet by mouth daily. 09/10/19 23 Active atorvastatin (LIPITOR) 20 mg tablet Take 20 mg by mouth daily. 09/13/19 24 Active azelastine (ASTELIN) 137 mcg/actuation nasal spray Administer 1 Reading in each nostril 2 times daily. 03/18/20 24 Active Blood-Glucose Sensor (Dexcom G7 Sensor) Device 01/16/20 24 Active cholecalcifero l, Vitamin D3, 125 mcg (5,000 unit) Capsule Take 5,000 Units by mouth daily. Active Jardiance 25 mg tablet Take 25 mg by mouth. 06/22/19 24 Active glipiZIDE (GLUCOTROL XL) 10 mg Extended Release 24 hour tablet Take 10 mg by mouth daily. 06/15/19 24 Active metFORMIN (GLUCOPHAGE XR) 500 mg Extended Release 24 hour tablet Take 1,000 mg by mouth daily at bedtime. 06/22/19 24 Active traMADoL (ULTRAM) 50 mg tablet Take 50 mg by mouth. Active albuterol sulfate 90 mcg/actuation metered powder inhaler Take by inhalation. Active folic acid (FOLVITE) 1 mg tablet Take 1 Tablet (1 mg) by mouth daily starting 7 days prior to 1st cycle, and continuing 21 days after last treatment. 90 Tablet 3 05/27/19 25 Active dexAMETHasone (DECADRON) 4 mg tablet Take 1 Tablet (4 mg) by mouth 2 times daily day before treatment, day of treatment, day after treatment. 6 Tablet 5 05/27/19 25 Active lidocaine-pril ocaine (EMLA) 2.5-2.5 % CreamIndicatio ns:put a dime size amout of cream to port sight 30 minutes before treatment. Apply to affected area see administration instructions. 30 Gram 1 05/31/19 25 Active ondansetron (ZOFRAN ODT) 8 mg Tablet, Rapid Dissolve Dissolve 1 tablet on top of tongue then swallow with saliva every 8 hours as needed for nausea or vomiting 30 Tablet 1 08/22/19 25 Active ondansetron (ZOFRAN ODT) 8 mg Tablet, Rapid Dissolve Dissolve 1 tablet on top of tongue then swallow with saliva every 8 hours as needed for nausea or vomiting 30 Tablet 1 05/27/19 25 025 Discontin ued(Reord er) Active Problems No known active problems Encounters Date Type Department Care Team Description 09/10/2024 External Device Data STL ABSTRACTION Provider, Abstract 09/09/2024 Orders Only [facility] - [place] [address] [place] [phone] Jose Gates MD Malignant neoplasm of lung, unspecified laterality, unspecified part of lung ([facility]/HCC) 08/29/2024 Orders Only [facility] - [place] [address] [place] [address] Jose Gates MD 08/28/2024 Orders Only [facility] - [place] [address] [place] [address] Jose Gates MD 08/26/2024 Orders Only [facility] - [place] [address] [place] [address] Jose Gates MD Malignant neoplasm of lung, unspecified laterality, unspecified part of lung (CMS/HCC) 08/21/2024 9:00 AM CDT Office Visit [facility] - [place] [address] [place] [address] Jose Gates MD Malignant neoplasm of lung, unspecified laterality, unspecified part of lung (CMS/HCC) (Primary Dx) 08/21/2024 Orders Only [facility] - [place] [address] [place] [phone] Jose Gates MD 08/19/2024 Orders Only [facility] - [place] [address] [place] [phone] Jose Gates MD 08/16/2024 Telephone [facility] - [place] [address] [place] [phone] Jose Gates MD Treatment 08/12/2024 Orders Only [facility] - [place] [address] [place] [phone] Jose Gates MD Malignant neoplasm of lung, unspecified laterality, unspecified part of lung (CMS/HCC) 08/09/2024 10:00 AM CDT Office Visit [facility] - [place] [address] [place] [address] Jose Gates MD Malignant neoplasm of lung, unspecified laterality, unspecified part of lung (CMS/HCC) (Primary Dx) 08/06/2024 External Device Data STL ABSTRACTION Provider, Abstract 07/30/2024 External Device Data STL ABSTRACTION Provider, Abstract 07/29/2024 Orders Only [facility] - [place] [address] [place] [address] Jose Gates MD Malignant neoplasm of lung, unspecified laterality, unspecified part of lung (CMS/HCC) 07/22/2024 Orders Only [facility] - [place] [address] [place] [address] Jose Gates MD 07/19/2024 Orders Only [facility] - [place] [address] [place] [address] Jose Gates MD 07/15/2024 8:30 AM CDT Office Visit [facility] - [place] [address] [place] [address] Jose Gates MD Malignant neoplasm of lung, unspecified laterality, unspecified part of lung (CMS/HCC) 07/15/2024 Orders Only [facility] - [place] [address] [place] [address] Jose Gates MD 07/10/2024 External Device Data STL ABSTRACTION Provider, Abstract 07/01/2024 External Device Data STL ABSTRACTION Provider, Abstract 07/01/2024 Orders Only [facility] - [place] [address] [place] [address] Jose Gates MD Malignant neoplasm of lung, unspecified laterality, unspecified part of lung (CMS/HCC) 06/28/2024 Orders Only [facility] - [place] [address] [place] [address] Jose Gates MD 06/27/2024 Orders Only [facility] - [place] [address] [place] [address] Jose Gates MD 06/27/2024 Abstract [facility] - [place] [address] [place] [address] Jose Gates MD 06/20/2024 9:30 AM GAS PRODUCER Office Visit [facility] - [address] [place] [address] Jose Gates MD Malignant neoplasm of lung, unspecified laterality, unspecified part of lung (CMS/HCC) (Primary Dx) 06/18/2024 External Device Data STL ABSTRACTION Provider, Abstract 06/17/2024 Orders Only [facility] - [place] [address] [place] [address] Jose Gates MD Malignant neoplasm of lung, unspecified laterality, unspecified part of lung (CMS/HCC) from Last 3 Months Family History Medical History Relation Name Comments Cancer Brother No Known Problems Child Leukemia Father No Known Problems Mother Relation Name Status Comments Brother Alive Child Alive Father Mother Alive Social History Tobacco Use Types Packs/Day Years Used Date Smoking Tobacco: Former Cigarettes 0.3 60.1 0 05/01/1964 - 06/22/2024 Tobacco Cessation:Counseling Given: Not Answered Alcohol Use Standard Drinks/Week Comments Yes 28 (1 standard drink = 0.6 oz pure alcohol) patient reports not drinking at all anymore Sex and Gender Information Value Date Recorded Sex Assigned at Not on file Legal Sex Male 2:16 PM GAS PRODUCER Gender Identity Not on file Sexual Orientation Not on file Last Filed Vital Signs Vital Sign Reading Time Taken Comments Blood Pressure 110/65 08/21/2024 8:43 AM CDT Pulse 98 08/21/2024 8:43 AM CDT Temperature 36 C (96.8 F) 08/21/2024 8:43 AM CDT Respiratory Rate 15 08/21/2024 8:43 AM CDT Oxygen Saturation 96% 08/21/2024 8:43 AM CDT Inhaled Oxygen Concentration - - Weight 81 kg (178 lb 9.6 oz) 08/21/2024 8:43 AM CDT Height 170.2 cm (5' 7 ) 05/01/2024 3:53 PM GAS PRODUCER Body Mass Index 27.97 05/01/2024 3:53 PM GAS PRODUCER Plan of Treatment Upcoming Encounters Date Type Department Care Team (Late st Contact Info) Description 09/19/2024 9:45 AM CDT Office Visit [facility] - [place] [address] [place] [address] Jose Gates MD [address] [facility] [address] [place] [address] Health Maintenance Due Date Last Done Comments DTAP/TDAP/TD VACCINES (1 - Tdap) 1970 PNEUMOCOCCAL VACCINE 50+ YEARS (1 of 2 - PCV) 04/21/19 [...] Associated Diagnosis Comments COMPREHENSIVE METABOLIC PANEL Routine 08/28/2024 4:07 PM CDT BASIC METABOLIC PANEL Routine 08/28/2024 10:36 AM CDT BASIC METABOLIC PANEL Routine 08/21/2024 1:30 PM CDT CBC MIXED CELL DIFFERENTIAL Routine 07/25 11:50 AM CDT BASIC METABOLIC PANEL Routine 08/16/2024 12:50 PM CDT CBC MIXED CELL DIFFERENTIAL Routine 07/24 12:48 PM CDT BASIC METABOLIC PANEL Routine 08/09/2024 12:44 PM CDT BASIC METABOLIC PANEL Routine 08/09/2024 11:56 AM CDT CBC MIXED CELL DIFFERENTIAL Routine 07/23 11:06 AM CDT CBC MIXED CELL DIFFERENTIAL Routine 06/23 1:30 PM CDT BASIC METABOLIC PANEL Routine 07/19/2024 1:22 PM CDT BASIC METABOLIC PANEL Routine 07/15/2024 3:51 PM CDT COMPREHENSIVE METABOLIC PANEL Routine 07/15/2024 1:40 PM CDT CBC WITH AUTODIFFERENTIAL Routine 2024 2:29 PM GAS PRODUCER BASIC METABOLIC PANEL Routine 06/27/2024 8:46 AM GAS PRODUCER CBC WITH DIFFERENTIAL Routine 06/20/2024 9:52 AM GAS PRODUCER from Last 3 Months Results * COMPREHENSIVE METABOLIC PANEL (08/28/2024 4:07 PM CDT) Only the most recent of2 resultswithin the time period is included. Blood us Jose Gates MD CHEMISTRY ORDERABLES Final Resu lt * BASIC METABOLIC PANEL (08/28/2024 10:36 AM CDT) Only the most recent of8 resultswithin the time period is included. Blood us Jose Gates MD CHEMISTRY ORDERABLES Final Resu lt * CBC MIXED CELL DIFFERENTIAL (08/21/2024 11:50 AM CDT) Only the most recent of4 resultswithin the time period is included. Blood Jose Gates MD HEMATOLOGY ORDERABLES Final Res ult * CBC WITH AUTODIFFERENTIAL (06/27/2024 2:29 PM GAS PRODUCER) Blood Jose Gates MD HEMATOLOGY ORDERABLES Final Res ult * CBC WITH DIFFERENTIAL (06/20/2024 9:52 AM GAS PRODUCER) Blood Result [facility] us Jose Gates MD HEMATOLOGY ORDERABLES Final Res ult from Last 3 Months Insurance [facility] [place] Care Teams Polishing Wheel Repairer Relationship Specialty Start Date End Date Emily Hensley MD [address] [place] [address] PCP - General Family Practice 05/03/24
== END 2024-09-13 09:05 | disposition home or self-care (01) ==
PROVIDERS: PCP Family Medicine; Visit Provider Internal Medicine Hematology & Oncology
DX: C34.90 Malignant neoplasm of unspecified part of unspecified bronchus or lung (principal)
CPT/HCPCS: 71260; Q9967

== ENCOUNTER 2024-12-27 07:56 | Outpatient (CLI) | payer MEDICARE, SELFPAY ==
--- OUTSIDE RECORDS SUMMARY | 2024-12-26 09:30 | XMS_ITS | Encounter Summary ---
Author Organization [facility] Address [address] [place] [address] Care Team Providers Care Casserole Preparer Name Role Phone Emily Hensley MD Primary Care Provider Reason for Visit * Reason Comments Chemotherapy Encounter Details Date Type Department Care Team (Late st Contact Info) Description 12/26/2024 9:30 AM CDT Office Visit [facility] Oncology and Hematology - [place] [address] [place] [address] Christal Del Rosario MD [address] [place] [address] Malignant neoplasm of lung, unspecified laterality, unspecified part of lung (CMS/HCC) (Primary Dx) Social History Tobacco Use Types Packs/Day Years Used Date Smoking Tobacco: Former Cigarettes 0.3 60.1 0 05/01/1964 - 06/22/2024 Alcohol Use Standard Drinks/Week Comments Yes 28 (1 standard drink = 0.6 oz pure alcohol) patient reports not drinking at all anymore Sex and Gender Information Value Date Recorded Sex Assigned at Not on file Legal Sex Male 2:16 PM GROUND HOST/HOSTESS Gender Identity Not on file Sexual Orientation Not on file documented as of this encounter Last Filed Vital Signs Vital Sign Reading Time Taken Comments Blood Pressure 133/66 12/26/2024 9:17 AM CDT Pulse 92 12/26/2024 9:15 AM CDT Temperature 36.3 C (97.4 F) 12/26/2024 9:15 AM CDT Respiratory Rate 16 12/26/2024 9:15 AM CDT Oxygen Saturation 96% 12/26/2024 9:15 AM CDT Inhaled Oxygen Concentration - - Weight 79.7 kg (175 lb 9.6 oz) 12/26/2024 9:15 A M CDT Height - - Body Mass Index 27.5 05/01/2024 3:53 PM GROUND HOST/HOSTESS documented in this encounter Progress Notes * Christal Del Rosario MD - 12/26/2024 9:29 AM CDT HEMATOLOGY / ONCOLOGY PROGRESS NOTE Patient Identification: Name: Arturo Rose Age: 74 y.o. Sex: male : 1950 DIAGNOSIS T2a N2 M0 stage IIIA non-small cell lung cancer status post FNA of lymph node station 4R done on April 11, 2024 showed positive metastatic adenocarcinoma of lung. CURRENT TREATMENT Maintenance treatment with durvalumab started on October 17, 2024. TREATMENT HISTORY Radiation therapy treatment completed July 15, 2024. Patient completed chemotherapy cycle 4/4 with carboplatin Alimta on August 21, 2024. SUBJECTIVE Patient came to the office for follow-up visit and continuation of maintenance treatment. He has been tolerating treatment well other than some complain of tiredness and fatigue. He initially lost 9 pound weight but states that weight is now stabilized. No other new complaints. Review of system Constitutional: Patient did not mention fevers, sweats, 9 pound weight loss, complain of tiredness and fatigue HEENT: Patient did not mention sinus congestion, hearing or vision problems Respiratory: Patient did not mention cough, dyspnea, wheeze Cardiovascular: Patient did not mention chest pain, exertional chest pressure/discomfort, nausea, syncope, shortness of breath GI: Patient did not mention constipation, diarrhea, dsyphagia, reflux symptoms, vomiting, melena : Patient did not mention dysuria, frequency, incontinence, urgency Integumentary system: no lymphadenopathy, sweats, flushing Musculoskeletal: Patient not mention: myalgia, arthralgia Neurological: Patient did not mention blurry or disturbed vision, numbness/weakness, dizziness Skin: No lumps, bumps or rashes. 12 point review of system was reviewed Objective: Vital signs in last 24 hours: As per nursing note Exam: General appearance: alert, cooperative, no distress, appears stated age Head: normocephalic, without obvious abnormality, atraumatic Eyes: conjunctivae/corneas clear, EOM's intact Ears: normal external ear canals AU Nose: Nares normal. Septum midline. Mucosa normal. No drainage or sinus tenderness Throat: Lips, mucosa, and tongue normal. Teeth and gums normal Neck: supple, symmetrical, trachea midline. Lungs: clear to auscultation bilaterally Heart: regular rate and rhythm, S1, S2 normal, no murmur, click, rub or gallop Abdomen: soft, non-tender. Bowel sounds normal. No masses, No organomegaly Extremities: extremities normal, atraumatic, no cyanosis or edema Skin: Skin color, texture, turgor normal. Boil noted on the right big toe but healing. Lymph nodes: No lymphadenopathy Neuro: No obvious focal deficit LABS Labs from June 20 showed WBC 4.7 hemoglobin 14 platelet 80,000 creatinine 1.3 Labs from July 15 showed WBC 7.9 hemoglobin 11.9 platelet 156,000 creatinine 1.5 Labs from August 09 showed WBC 9.6 hemoglobin 9.3 platelet 293,000 creatinine 1.4 Labs from August 21 showed creatinine 1.2 WBC 13.7 hemoglobin 9.5 platelet 301,000 Labs from showed WBC 10.8 hemoglobin 9.2 platelet 223,000 creatinine 1.0 Labs from October 31 show WBC 9.8 hemoglobin 11.2 platelet 180,000 creatinine 1.2 Labs from November 28 showed WBC 10.4 hemoglobin 12.8 platelet 204,000 creatinine 1.3 Labs from 12/26/24 showed WBC 10.0 hemoglobin 13.2 platelet 204,000 creatinine 1.1 Assessment: Plan: T2a N2 M0 stage IIIA non-small cell lung cancer of Right lung- Status post FNA of lymph node station 4R done on April 11, 2024 showed positive metastatic adenocarcinoma of lung. [employer] ration sequencing showed TP53 mutation positive. MSI high not detected PET scan showed increased size of right upper lobe mass with increased activity of mediastinal and right hilar lymph node consistent with progression of the primary lung cancer with sinai metastasis.There was no other evidence of metastatic disease. Patient started concurrent chemoradiation therapy with carboplatin and Alimta on June 07, 2024.Patient completed cycle 4/4 of chemotherapy on August 21, 2024. CT scan done on September 13, 2024 showed stable right paratracheal lymphadenopathy. Right upper lobe nodule decreased in size. There was new small sclerotic lesion at T12 vertebral body. This is likely secondary to previous back injury and treatment. Patient started maintenance durvalumab on October 17, 2024. Labs noted and showed improvement in the hemoglobin. Dr. Gates ordered repeat CT scan chest duringhis last visit on 11/28/24. He is scheduled for the imaging tomorrow, 12/27/24. He will follow up with Dr. Gates in 4 weeks and imaging results will be discussed with him then. Patient will continue treatment with durvalumab that he has been tolerating well. Anemia. Hemoglobin has improved. Continue vitamin B12 and iron. Diabetes. He will follow-up with the primary care physician. Tiredness and fatigue. He is instructed to take multivitamin with Ensure but not taking it. States that he will talk to his primary care physician about getting off the Jardiance as patient believes this med is causing him fatigue. Coronary artery disease status post coronary artery bypass grafting. Stable on aspirin. Follow-up in 4 weeks 12/26/2024 documented in this encounter Plan of Treatment Upcoming Encounters Date Type Department Care Team (Late st Contact Info) Description 01/23/2025 9:30 AM CDT Office Visit [facility] Oncology and Hematology [facility] [address] [facility] [address] [place] [address] Jose Gates MD [address] [place] [address] documented as of this encounter Visit Diagnoses Diagnosis Malignant neoplasm of lung, unspecified laterality, unspecified part of lung (CMS/HCC)- Primary documented in this encounter Care Teams Casserole Preparer Relationship Specialty Start Date End Date Emily Hensley MD [address] [place] [address] PCP - General Family Practice 05/03/24 documented as of this encounter
--- NOTE | ~2024-12-27 | CT_ITS ---
EXAM: CT diagnostic chest w con - 12/27/2024 8:05 CDT History: 74 years old Male with MAL SIM OF LUNG, FOLLOW UP TECHNIQUE: CT scan of the chest without IV contrast. Coronal and sagittal reformats were also provided for review. Automatic exposure control was used for this study. Contrast: 80 cc of Isovue-300 COMPARISON: 09/13/2024. FINDINGS: LINES AND DEVICES: None. VISUALIZED LOWER NECK: Thyroid gland appears normal. No supraclavicular lymphadenopathy. AIRWAYS: Patent centrally. LUNGS and PLEURA: 0.8 x 0.7 cm and 0.5 x 0.4 cm pulmonary nodules in the left upper lobe, new since August. 0.8 x 0.8 cm pulmonary nodule in the right upper lobe, new since August. Previously seen irregular nodules/consolidations in the medial right upper lobe, medial right lower lobe and adjacent superior segment of the right lower lobe are grossly unchanged. MEDIASTINUM and WALLY: Right paratracheal lymphadenopathy, grossly unchanged. HEART AND PERICARDIUM: Cardiac chambers are normal in size. No pericardial fluid or thickening is present. Severe atherosclerotic of the coronary arteries. VASCULATURE: Thoracic aorta and pulmonary arteries are normal in caliber. CHEST WALL: No supraclavicular or axillary lymphadenopathy. MUSCULOSKELETAL: Multilevel degenerative changes of the thoracic spine. Unchanged small sclerotic lesions in the T12 vertebral body, suspicious for metastatic disease. UPPER ABDOMEN: Mild hepatic steatosis. Multiple calcified granulomas are seen in the spleen. Diffuse wall thickening of the esophagus. IMPRESSION: 1. Worsening bilateral pulmonary metastatic disease with multiple new nodules, as detailed above. 2. Other multiple stable neoplastic findings, as above. Reviewed, dictated and finalized at location N.
--- OUTSIDE RECORDS SUMMARY | 2024-12-27 08:00 | XMS_ITS | Encounter Summary ---
Author Organization [facility] Healthcare Address [address] [place] [address] Care Team Providers Care Rehab Nurse Name Role Phone Emily Hensley MD Primary Care Provider Britany Webber MD Unavailable [phone] Reason for Referral * MRI/CAT/PET Scan (Routine) - Pending Review Specialty Diagnoses / Procedures Referred By Contac t Referred To Contact Radiology Diagnoses Elevated prostate specific antigen (PSA) Procedures MRI PELVIS PROSTATE W WO CONTRAST Dashawn Collins MD [address] [address] Phone: tel: fax: [address] [address] Referral ID Status Reason Start Date Expiration Date V isits Requested Visits Authorized [id number] Pending Review 05/28/2024 06/27/2025 1 1 LE MAKER Encounter Details Date Type Department Care Team (Late st Contact Info) Description 05/28/2024 Community Orders [facility] EpicCare Link Dashawn Collins MD [address] [address] Elevated prostate specific antigen (PSA) [...] on file Legal Sex Male 10:28 AM CANDLE MAKER Gender Identity Not on file Sexual Orientation [...] Primary documented in this encounter Care Teams Rehab Nurse Relationship Specialty Start Date End Date Emily Hensley MD PCP - General Family Practice 08/21/20 Britany Webber MD [address] [facility] [address] [place] [address] Consulting Physician Critical Care Med 04/18/24 documented as of this encounter
--- OUTSIDE RECORDS SUMMARY | 2024-12-27 08:00 | XMS_ITS | Clinical Summary ---
Author Organization [facility] Address [address] [place] [address] Care Team Providers Care Dielectric Machine Operator Name Role Phone Emily Hensley MD Primary Care Provider Allergies Active Allergy Reactions Criticality Noted Date Comments Meloxicam Syncope Medium 11/09/2020 Medications aspirin (ECOTRIN EC) 81 mg Tablet, Delayed Release (E.C.) Take 1 Tablet by mouth daily. 09/10/19 23 Active atorvastatin (LIPITOR) 20 mg tablet Take 20 mg by mouth daily. 09/13/19 24 Active azelastine (ASTELIN) 137 mcg/actuation nasal spray Administer 1 Neville in each nostril 2 times daily. 03/18/20 24 Active Blood-Glucose Sensor (Dexcom G7 Sensor) Device 01/16/20 24 Active cholecalciferol , Vitamin D3, 125 mcg [...] metered powder inhaler Take by inhalation. Active dexAMETHasone (DECADRON) 4 mg tablet Take 1 Tablet (4 mg) by mouth 2 times daily day before treatment, day of treatment, day after treatment. 6 Tablet 5 05/27/19 25 Active ondansetron (ZOFRAN ODT) 8 mg Tablet, Rapid DissolveIndicat ions:Malignant neoplasm of lung, unspecified laterality, unspecified part of lung (CMS/HCC) Dissolve 1 tablet on top of tongue then swallow with saliva every 8 hours as needed for nausea or vomiting 30 Tablet 1 10/11/19 25 Active lidocaine-prilo bola (EMLA) 2.5-2.5 % CreamIndication s:put a dime size amout of cream to port sight 30 minutes before treatment. Apply to affected area see administration instructions. 30 Gram 1 10/11/19 25 Active folic acid (FOLVITE) 1 mg tablet Take 1 Tablet (1 mg) by mouth daily starting 7 days prior to 1st cycle, and continuing 21 days after last treatment. 90 Tablet 3 12/17/19 25 Active folic acid (FOLVITE) 1 mg tablet Take 1 Tablet (1 mg) by mouth daily starting 7 days prior to 1st cycle, and continuing 21 days after last treatment. 90 Tablet 3 05/27/19 25 025 Discontin ued(Reord er) Active Problems Problem Noted Date Diagnosed Date Malignant neoplasm of lung 12/26/2024 Encounters Date Type Department Care Team Description 12/26/2024 9:30 AM CDT Office Visit [facility] Oncology and Hematology - [place] [address] [place] [address] Christal Del Rosario MD Malignant neoplasm of lung, unspecified laterality, unspecified part of lung (CMS/HCC) (Primary Dx) 12/26/2024 Orders Only [facility] Oncology and Hematology - [place] [address] [place] [address] Jose Gates MD 12/24/2024 External Device Data STL ABSTRACTION Provider, Abstract 12/16/2024 Refill [facility] Oncology and Hematology - [place] [address] [place] [address] Jose Gates MD 12/16/2024 Orders Only [facility] Oncology and Hematology - [place] [address] [place] [address] Jose Gates MD Malignant neoplasm of lung, unspecified laterality, unspecified part of lung (CMS/HCC) 12/13/2024 Orders Only [facility] Oncology and Hematology - [place] [address] [place] [phone] Jose Gates MD 12/12/2024 Orders Only [facility] Oncology and Hematology - [place] [address] [place] [phone] Jose Gates MD 12/02/2024 Orders Only [facility] Oncology and Hematology - [place] [address] [place] [address] Jose Gates MD Malignant neoplasm of lung, unspecified laterality, unspecified part of lung (CMS/HCC) 11/28/2024 9:45 AM CDT Office Visit [facility] Oncology and Hematology - [address] [place] [phone] Jose Gates MD Malignant neoplasm of lung, unspecified laterality, unspecified part of lung (CMS/HCC) (Primary Dx) 11/28/2024 Orders Only [facility] Oncology and Hematology - [address] [place] [address] Jose Gates MD 11/18/2024 Orders Only [facility] Oncology and Hematology - [address] [place] [address] Jose Gates MD Malignant neoplasm of lung, unspecified laterality, unspecified part of lung (CMS/HCC) 11/14/2024 Orders Only [facility] Oncology and Hematology - [address] [place] [address] Jose Gates MD 11/04/2024 Orders Only [facility] Oncology and Hematology - [address] [place] [address] Jose Gates MD Malignant neoplasm of lung, unspecified laterality, unspecified part of lung (CMS/HCC) 10/31/2024 9:00 AM CDT Office Visit [facility] Oncology and Hematology - [address] Jose Gates MD Malignant neoplasm of lung, unspecified laterality, unspecified part of lung (CMS/HCC) (Primary Dx) 10/21/2024 Orders Only [facility] Oncology and Hematology - [place] [address] Jose Gates MD Malignant neoplasm of lung, unspecified laterality, unspecified part of lung (CMS/HCC) 10/18/2024 Orders Only [facility] Oncology and Hematology - [address] Jose Gates MD 10/17/2024 Orders Only [facility] Oncology and Hematology - [address] Jose Gates MD 10/10/2024 Refill [facility] Oncology and Hematology - [place] [address] [place] [phone] Jose Gates MD Malignant neoplasm of lung, unspecified laterality, unspecified part of lung (CMS/HCC) (Primary Dx) 10/07/2024 Orders Only [facility] Oncology and Hematology - [address] [place] [address] Jose Gates MD Malignant neoplasm of lung, [...] on file Legal Sex Male 2:16 PM 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 [address] [facility] [address] [place] [address] Jose Gates MD [address] [facility] [address] [place] [address] Health Maintenance Due Date Last Done Comments DIABETES ANNUAL FOOT EXAM 1969 DIABETES ANNUAL RETINAL EXAM 1969 DIABETES HBA1C Q 6 MONTHS 1969 DIABETES MICROALBUMIN ANNUAL SCREEN 1969 LDL CHOLESTEROL ANNUAL 1969 PNEUMOCOCCAL VACCINE 50+ YEARS (1 of 2 - PCV) 04/21/19 70 COLORECTAL SCREENING 1996 Colorectal Cancer Screening 1996 FIT-DNA Q 3 years 1996 FIT/FOBT Q 1 year 1996 Flex Sig/CT Colonography Q 5 years 1996 ZOSTER VACCINE (1 of 2) 2001 RSV VACCINE (60+ or ) (1 - Risk 60-74 years 1-dose series) 2011 Abdominal Aortic Aneurysm (AAA) Screening 2016 DTAP/TDAP/TD VACCINES (2 - Td or Tdap) 07/25/2017 INFLUENZA VACCINE (#1) 2024 Procedures Procedure Name Priority Date/Time Associated Diagnosis Comments BASIC METABOLIC PANEL Routine 12/26/2024 11:51 AM CDT COMPREHENSIVE METABOLIC PANEL Routine 12/26/2024 11:43 AM CDT BASIC METABOLIC PANEL Routine 12/12/2024 11:56 AM CDT CBC WITH AUTODIFFERENTIAL Routine 2024 11:53 AM CDT COMPREHENSIVE METABOLIC PANEL Routine 12/12/2024 7:38 AM CDT BASIC METABOLIC PANEL Routine 11/28/2024 12:52 PM CDT COMPREHENSIVE METABOLIC PANEL Routine 11/28/2024 12:51 PM CDT BASIC METABOLIC PANEL Routine 11/14/2024 2:27 PM CDT COMPREHENSIVE METABOLIC PANEL Routine 11/14/2024 1:10 PM CDT BASIC METABOLIC PANEL Routine 10/17/2024 3:39 PM CDT COMPREHENSIVE METABOLIC PANEL Routine 10/17/2024 3:28 PM CDT QUANTIFERON TB CONFIRMATION Routine 09/22 1:26 PM CDT from Last 3 Months Results * BASIC METABOLIC PANEL (12/26/2024 11:51 AM CDT) Only the most recent of5 resultswithin the time period is included. Blood us Jose Gates MD CHEMISTRY ORDERABLES Final Resu lt * COMPREHENSIVE METABOLIC PANEL (12/26/2024 11:43 AM CDT) Only the most recent of5 resultswithin the time period is included. Blood us Jose Gates MD CHEMISTRY ORDERABLES Final Resu lt * CBC WITH AUTODIFFERENTIAL (12/12/2024 11:53 AM CDT) Blood us Jose Gates MD HEMATOLOGY ORDERABLES Final Res ult * QUANTIFERON TB CONFIRMATION (10/08/2024 1:26 PM CDT) Blood us Jose Gates MD CHEMISTRY ORDERABLES Final Resu lt from Last 3 Months Insurance [facility] Care Teams Dielectric Machine Operator Relationship Specialty Start Date End Date Emily Hensley MD [address] [place] [id number] PCP - General Family Practice 05/03/24
--- OUTSIDE RECORDS SUMMARY | 2024-12-27 08:00 | XMS_ITS | Clinical Summary ---
Author Organization [facility] Address [address] [place] [address] Care Team Providers Care Multi Craft Maintenance Technician Name Role Phone Emily Hensley MD [...] lower extremities PVC (premature ventricular contraction) 09/08/19 21 PVD (peripheral vascular disease) 09/07/2020 Tobacco use [...] 85 01/26/2021 11:00 AM CDT Temperature 36.6 C (97.8 F) 01/26/2021 9:00 AM CDT Respiratory Rate 20 01/26/2021 2:00 PM CDT Oxygen Saturation 96% 01/26/2021 5:00 PM CDT Inhaled Oxygen Concentration - - Weight 101.6 kg (223 lb 15.8 oz) 01/26/2021 1:00 AM CDT Height 172.7 cm (5' 8) 01/25/2021 11:4 5 AM CDT Body Mass Index 34.06 01/25/2021 11:45 AM CDT Plan of Treatment Upcoming Encounters Date Type Department Care Team (Late st Contact Info) Description 04/07/2025 11:00 AM RN SOCIAL WORK Office Visit [facility] Multispecialty [facility] - [facility] [address] [facility], [address] [place] [id number] Tatiana Liu APRN [address] [facility] [address] [place] [address] Health Maintenance Due Date Last Done Comments Colorectal Cancer Screening Colonoscopy (10 Years) 1950 Hepatitis C 1969 DTaP, Tdap and Td Vaccines ( 1 - Tdap) 1970 Pneumococcal Vaccine: 50+ Years (1 of 2 - PCV) 1970 Zoster Vaccines (1 of 2) 2001 Annual Medicare Wellness Visit 2016 COVID-19 Vaccine (3 - 2023-2 5 season) 2023 07/27/2020, 07/05/2020 RSV Immunization or 60+ Years (1 - 1-dose 75+ series) 2026 Meningococcal B Vaccine Aged Out No l onger eligible based on patient's age to complete this topic Meningococcal Vaccine Aged Out No get felipe eligible based on patient's age to complete this topic RSV Immunizations Under 20 Months Aged Out No longer eligible b ased on patient's age to complete this topic Medical Devices Implanted Type Area Heat Treat Operator Device Identifier Shelf Expiration Date Model / Serial / Lot Graft Gortex 45 Access Stnd Wall Stretch 4-7mm - [id number] Implanted:Qty : 1 on 11/16/2020 by Crow Gooden MD at [facility] Graft Right: Leg W [employer] [id number] 08/10/2025 [id number] / [id number] / Graft [employer] [id number] - [id number] Implanted:Qty : 1 on 01/25/2021 by Crow Gooden MD at [facility] Graft Left: Leg W L [employer] [id number] 09/20/2024 [id number] / [id number] 17 / [id number] 17 Insurance [employer] Advance Directives * Full Code (Latest Code Status on File) Date Activated Date Inactivated Comments 01/25/2021 7:56 PM 01/26/2021 8:32 PM * Full Code Date Activated Date Inactivated Comments 11/16/2020 11:43 AM 11/18/2020 11:52 AM * Full Code Date Activated Date Inactivated Comments 08/21/2020 9:59 AM 08/21/2020 4:13 PM Care Teams Multi Craft Maintenance Technician Relationship Specialty Start Date End Date Emily Hensley MD [address] [place] [address] PCP - General FAMILY PRACTICE 08/21/20
--- OUTSIDE RECORDS SUMMARY | 2024-12-27 08:00 | XMS_ITS | Clinical Summary ---
Author Organization [facility] [address] Address [address] [place] [address] Care Team Providers Care Business Process Manager Name Role Phone Emily Hensley MD Primary Care Provider Britany Webber MD Unavailable [phone] Allergies No known active allergies Medications albuterol [...] atorvastatin (LIPITOR) 20 mg tabletIndications: Atherosclerosis of pechanga artery of both lower extremities with intermittent [...] Date Resolved Date Preop cardiovascular exam 09/07/2020 Surgical History Surgery Date Site/Laterality Comments BYPASS GRAFT Bilateral Lower extremities OTHER SURGICAL HISTORY Penile Pump Medical History Medical History Date Comments Skin disorder Wears partial dentures Cataracts, bilateral Hyperlipidemia Lung nodule 03/2024 Type 2 diabetes mellitus Family History Medical History Relation Name Comments [...] on file Legal Sex Male 10:28 AM 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 Gender Identity Not on file Sexual Orientation Not on file Obstetrics History Last Filed Vital Signs Vital Sign Reading Time Taken Comments Blood Pressure 100/52 07/29/2024 10:52 AM CDT Pulse 100 07/29/2024 10:52 AM CDT Temperature 36.6 C (97.8 F) 04/11/2024 9:33 AM 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 Respiratory Rate 18 04/11/2024 9:33 AM 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 Oxygen Saturation 98% 07/29/2024 10:52 AM CDT Inhaled Oxygen Concentration - - Weight 83 kg (183 lb) 07/29/2024 10:52 AM CDT Height 172.7 cm (5' 8) 07/29/2024 10:52 AM CDT Body Mass Index [...] Well Visit 65+ 2016 Influenza Vaccine (#1) 2024 Fall Risk Assessment 04/04/2025 04/04/2024 Insurance [facility] MEDICARE [employer] [facility] MEDICARE [facility] Care Teams Business Process Manager Relationship Specialty Start Date End Date Emily Hensley MD PCP - General Family Practice 08/21/20 Britany Webber MD [address] [facility] [address] [place] [address] Consulting Physician Critical Care Med 04/18/24
--- OUTSIDE RECORDS SUMMARY | 2024-12-27 08:00 | XMS_ITS | Encounter Summary ---
Author Organization [facility] ZI Burris [facility] Address [address] [place] [address] Care Team Providers Care Associate Automation Engineer Name Role Phone Emily Hensley MD Primary Care Provider Encounter Details Date Type Department Care Team (Late Contact Info) Description 12/26/2024 Orders Only [facility] Oncology and Hematology - Boyd [address] [place] [address] Jose Gates MD [address] [place] [address] [employer] [address] [place] [phone] Social History Tobacco Use Types Packs/Day Years Used Date Smoking Tobacco: Former Cigarettes 0.3 60.1 0 05/01/1964 - 06/22/2024 Alcohol Use Standard Drinks/Week Comments Yes 28 (1 standard drink = 0.6 oz pure alcohol) patient reports not drinking at all anymore Sex and Gender Information Value Date Recorded Sex Assigned at Not on file Legal Sex Male 2:16 PM MAINTENANCE ASSOCIATE Gender Identity Not on file Sexual Orientation Not on file documented as of this encounter Plan of Treatment Upcoming Encounters Date Type Department Care Team (Late st Contact Info) Description 01/23/2025 9:30 AM CDT Office Visit [facility] Oncology and Hematology - Boyd Ruthie [address] [place] [address] Jose Gates MD [facility] [employer] [address] [place] [phone] documented as of this encounter Procedures Procedure Name Priority Date/Time Associated Diagnosis Comments BASIC METABOLIC PANEL Routine 12/26/2024 11:51 AM CDT COMPREHENSIVE METABOLIC PANEL Routine 12/26/2024 11:43 AM CDT documented in this encounter Results * BASIC METABOLIC PANEL (12/26/2024 11:51 AM CDT) Blood us Jose Gates MD CHEMISTRY ORDERABLES Final Resu lt * COMPREHENSIVE METABOLIC PANEL (12/26/2024 11:43 AM CDT) Blood us Jose Gates MD CHEMISTRY ORDERABLES Final Resu lt documented in this encounter Visit Diagnoses Not on filedocumented in this encounter Care Teams Associate Automation Engineer Relationship Specialty Start Date End Date Emily Hensley MD [address] [place] [address] PCP - General Family Practice 05/03/24 documented as of this encounter
== END 2024-12-27 07:57 | disposition home or self-care (01) ==
PROVIDERS: PCP Family Medicine; Visit Provider Internal Medicine Hematology & Oncology
DX: C34.90 Malignant neoplasm of unspecified part of unspecified bronchus or lung (principal)
CPT/HCPCS: 71260; Q9967

== ENCOUNTER 2025-01-08 13:55 | Outpatient (CLI) | payer MEDICARE, SELFPAY ==
--- OUTSIDE RECORDS SUMMARY | 2025-01-08 14:33 | XMS_ITS | Encounter Summary ---
Author Organization [facility] Address [address] [place] [address] Care Team Providers Care Home Performance Consultant Name Role Phone Emily Hensley MD Primary Care Provider Encounter Details Date Type Department Care Team (Late st Contact Info) Description 01/07/2025 External Device Data STL ABSTRACTION Provider, Abstract [...] on file Legal Sex Male 2:16 PM CAN DRAGGER Gender Identity Not on file Sexual Orientation Not on file documented as of this encounter Plan of Treatment Upcoming Encounters Date Type Department Care Team (Late st Contact Info) Description 01/23/2025 9:30 AM CDT Office Visit [facility] Oncology and Hematology - Boyd [address] [facility] [address] [place] [address] Jose Gates MD [address] [facility] [address] [place] [address] documented as of this encounter Visit Diagnoses Not on filedocumented in this encounter Care Teams Home Performance Consultant Relationship Specialty Start Date End Date Emily Hensley MD [address] [place] [address] PCP - General Family Practice 05/03/24 documented as of this encounter
--- OUTSIDE RECORDS SUMMARY | 2025-01-08 14:33 | XMS_ITS | Encounter Summary ---
Author Organization [facility] ZI Burris [facility] Address [address] [place] [address] Care Team Providers Care Spot Welder Body Assembly Name Role Phone Emily Hensley MD Primary Care Provider Encounter Details Date Type Department Care Team (Late st Contact Info) Description 01/08/2025 Orders Only [facility] Oncology and Hematology - [address] [place] [address] Jose Gates MD [facility] [employer] [address] [place] [address] Benign hypertension (Primary Dx) Social History Tobacco Use Types Packs/Day Years Used Date Smoking Tobacco: Former Cigarettes 0.3 60.1 0 05/01/1964 - 06/22/2024 Alcohol Use Standard Drinks/Week Comments Yes 28 (1 standard drink = 0.6 oz pure alcohol) patient reports not drinking at all anymore Sex and Gender Information Value Date Recorded Sex Assigned at Not on file Legal Sex Male 2:16 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 HARDWARE ENGINEER Gender Identity Not on file Sexual Orientation Not on file documented as of this encounter Plan of Treatment Upcoming Encounters Date Type Department Care Team (Late st Contact Info) Description 01/23/2025 9:30 AM CDT Office Visit [facility] Oncology and Hematology - Boyd Ruthie [address] [place] [address] Jose Gates MD [facility] [employer] [address] [place] [address] Scheduled Orders Name Type Priority Associated Diagnoses Orde r Schedule TSH Lab Routine Benign hypertension Every Two Weeks for 99 Occurrences start ing 01/08/2025 until 01/08/2026 documented as of this encounter Visit Diagnoses Diagnosis Benign hypertension- Primary Essential hypertension, benign documented in this encounter Care Teams Spot Welder Body Assembly Relationship Specialty Start Date End Date Emily Hensley MD [address] [place] [address] PCP - General Family Practice 05/03/24 documented as of this encounter
--- OUTSIDE RECORDS SUMMARY | 2025-01-08 14:33 | XMS_ITS | Encounter Summary ---
Author Organization [facility] Address [address] [place] [address] Care Team Providers Care Research Professional Name Role Phone Emily Hensley MD Primary Care Provider Britany Webber MD Unavailable [phone] Reason for Referral * MRI/CAT/PET Scan (Routine) - Pending Review Specialty Diagnoses / Procedures Referred By Contac t Referred To Contact Radiology Diagnoses Elevated prostate specific antigen (PSA) Procedures MRI PELVIS PROSTATE W WO CONTRAST Dashawn Collins MD [address] [address] Phone: tel: fax: [address] [address] Referral ID Status Reason Start Date Expiration Date V isits Requested Visits Authorized [id number] Pending Review 05/28/2024 06/27/2025 1 1 E CUTTER Encounter Details Date Type Department Care Team (Late st Contact Info) Description 05/28/2024 Community Orders [facility] EpicCare Link Dashawn Collins MD [address] [address] Elevated prostate specific antigen (PSA) [...] on file Legal Sex Male 10:28 AM GRAPE CUTTER Gender Identity Not on file Sexual Orientation [...] Primary documented in this encounter Care Teams Research Professional Relationship Specialty Start Date End Date Emily Hensley MD PCP - General Family Practice 08/21/20 Britany Webber MD [address] [facility] [address] [place] [address] Consulting Physician Critical Care Med 04/18/24 documented as of this encounter
--- OUTSIDE RECORDS SUMMARY | 2025-01-08 14:33 | XMS_ITS | Clinical Summary ---
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 Gender Identity Not on file Sexual Orientation Not on file Obstetrics History Last Filed Vital Signs Vital Sign Reading Time Taken Comments Blood Pressure 100/52 07/29/2024 10:52 AM CDT Pulse 100 07/29/2024 10:52 AM CDT Temperature 36.6 C (97.8 F) 04/11/2024 9:33 AM CATHETER FINISHER AND INSPECTOR Respiratory Rate 18 04/11/2024 9:33 AM CATHETER FINISHER AND INSPECTOR Oxygen Saturation 98% 07/29/2024 10:52 AM CDT [...] 2024 Fall Risk Assessment 04/04/2025 04/04/2024 Insurance [facility] MEDICARE GOLD [facility] MEDICARE [facility] Care Teams Anatomy And Physiology Instructor Relationship Specialty Start Date End Date Emily Hensley MD PCP - General Family Practice 08/21/20 Britany Webber MD [address] [facility] [address] [place] [address] Consulting Physician Critical Care Med 04/18/24
--- OUTSIDE RECORDS SUMMARY | 2025-01-08 14:33 | XMS_ITS | Clinical Summary ---
Author Organization [facility] Address [address] [address] Care Team Providers Care Supervisor Billposting Name Role Phone Emily Hensley MD Primary Care Provider Allergies Active Allergy Reactions Criticality Noted Date Comments Meloxicam Syncope Medium 11/09/2020 Medications aspirin (ECOTRIN EC) 81 mg Tablet, Delayed Release (E.C.) Take 1 Tablet by mouth daily. 09/10/19 23 Active atorvastatin (LIPITOR) 20 mg tablet Take 20 mg by mouth daily. 09/13/19 24 Active azelastine (ASTELIN) 137 mcg/actuation nasal spray Administer 1 [place] in each nostril 2 times daily. 03/18/20 [...] Encounters Date Type Department Care Team Description 01/08/2025 Orders Only [facility] Oncology and Hematology - [address] [place] [address] Jose Gates MD Benign hypertension (Primary Dx) 01/07/2025 External Device Data STL ABSTRACTION Provider, Abstract 01/07/2025 Orders Only [facility] Oncology and Hematology - [address] [place] [address] Jose Gates MD 12/31/2024 External Device Data STL ABSTRACTION Provider, Abstract 12/31/2024 External Device Data STL ABSTRACTION Provider, Abstract 12/31/2024 External Device Data STL ABSTRACTION Provider, Abstract 12/30/2024 Orders Only [facility] Oncology and Hematology - [address] [place] [address] Jose Gates MD Malignant neoplasm of lung, unspecified laterality, unspecified part of lung (CMS/HCC) 12/26/2024 9:30 AM CDT Office Visit [facility] Oncology and Hematology - Boyd [address] [place] [address] Christal Del Rosario MD Malignant neoplasm of lung, unspecified laterality, unspecified part of lung (CMS/HCC) (Primary Dx) 12/26/2024 Orders Only [facility] Oncology and Hematology - Boyd Jer[address]o [address] Jose Gates MD 12/24/2024 External Device Data STL ABSTRACTION Provider, Abstract 12/16/2024 Refill [facility] Oncology and Hematology - [address] [place] [address] Jose Gates MD 12/16/2024 Orders Only [facility] Oncology and Hematology - [address] [place] [address] Jose Gates MD Malignant neoplasm of lung, unspecified laterality, unspecified part of lung (CMS/HCC) 12/13/2024 Orders Only [facility] Oncology and Hematology - [address] [place] [id number] Jose Gates MD 12/12/2024 Orders Only [facility] Oncology and Hematology - [address] [place] [id number] Jose Gates MD 12/02/2024 Orders Only [facility] Oncology and Hematology - [address] [place] [id number] Jose Gates MD Malignant neoplasm of lung, unspecified laterality, unspecified part of lung (CMS/HCC) 11/28/2024 9:45 AM CDT Office Visit [facility] Oncology and Hematology - Boyd Jer[address]o [address] Jose Gates MD Malignant neoplasm of lung, unspecified laterality, unspecified part of lung (CMS/HCC) (Primary Dx) 11/28/2024 Orders Only [facility] Oncology and Hematology - Boyd Jericho [address] Jose Gates MD 11/18/2024 Orders Only [facility] Oncology and Hematology - [address] Jose Gates MD Malignant neoplasm of lung, unspecified laterality, unspecified part of lung (CMS/HCC) 11/14/2024 Orders Only [facility] Oncology and Hematology - [address] Jose Gates MD 11/04/2024 Orders Only [facility] Oncology and Hematology - [address] Jose Gates MD Malignant neoplasm of lung, unspecified laterality, unspecified part of lung (CMS/HCC) 10/31/2024 9:00 AM CDT Office Visit [facility] Oncology and Hematology - [address] Jose Gates MD Malignant neoplasm of lung, unspecified laterality, unspecified part of lung (CMS/HCC) (Primary Dx) 10/21/2024 Orders Only [facility] Oncology and Hematology - [address] Jose Gates MD Malignant neoplasm of lung, unspecified laterality, unspecified part of lung (CMS/HCC) 10/18/2024 Orders Only [facility] Oncology and Hematology - [address] [place] [id number] Jose Gates MD 10/17/2024 Orders Only [facility] Oncology and Hematology - [address] Jose Gates MD 10/10/2024 Refill [facility] Oncology and Hematology - [address] Jose Gates MD Malignant neoplasm of [...] on file Legal Sex Male 2:16 PM VENEER CLIPPER HELPER Gender Identity Not on file Sexual [...] 170.2 cm (5' 7) 05/01/2024 3:53 PM VENEER CLIPPER HELPER Body Mass Index 27.5 05/01/2024 3:53 PM VENEER CLIPPER HELPER Plan of Treatment Upcoming Encounters Date Type Department Care Team (Late st Contact Info) Description 01/23/2025 9:30 AM CDT Office Visit [facility] Oncology and Hematology - Boyd [address] [facility] [address] [place] [address] Jose Gates MD [address] [facility] [address] [place] [address] Health Maintenance Due Date Last [...] VACCINES (2 - Td or Tdap) 07/25/2017 [place] Prev entative Visit/Annual Wellness Visit 04/24/2024 INFLUENZA VACCINE (#1) 2024 Procedures Procedure Name Priority Date/Time Associated Diagnosis Comments CT CHEST W CONTRAST Routine 12/27/2024 3 :00 PM CDT BASIC METABOLIC PANEL Routine 12/26/2024 11:51 AM [...] CDT from Last 3 Months Results * CT CHEST W CONTRAST (12/27/2024 3:00 PM CDT) Anatomical Region Laterality Modality Chest Computed Tomogra phy Jose Gates MD CT ORDERABLES Final Result * BASIC METABOLIC PANEL (12/26/2024 11:51 AM CDT) Only the most recent of5 resultswithin the time period is included. Blood Jose Gates MD CHEMISTRY ORDERABLES Final Resu lt * COMPREHENSIVE METABOLIC PANEL (12/26/2024 11:43 AM CDT) Only the most recent of5 resultswithin the time period is included. Blood Jose Gates MD CHEMISTRY ORDERABLES Final Resu lt * CBC WITH AUTODIFFERENTIAL (12/12/2024 11:53 AM CDT) Blood us Jose Gates MD HEMATOLOGY ORDERABLES Final Res ult * QUANTIFERON TB CONFIRMATION (10/08/2024 1:26 PM CDT) Blood Jose Gates MD CHEMISTRY ORDERABLES Final Resu lt from Last 3 Months Insurance [facility] Address: [facility] [id number] [place] [address] Care Teams Supervisor Billposting Relationship Specialty Start Date End Date Emily Hensley MD [address] [place] [address] PCP - General Family Practice 05/03/24
--- OUTSIDE RECORDS SUMMARY | 2025-01-08 14:33 | XMS_ITS | Encounter Summary ---
Author Organization [facility] ZI Burris [facility] Address [address] [place] [address] Care Team Providers Care Seismic Prospecting Observer Helper Name Role Phone Emily Hensley MD Primary Care Provider Encounter Details Date Type Department Care Team (Late Contact Info) Description 01/07/2025 Orders Only [facility] Oncology and Hematology [address] [place] [address] Jose Gates MD [address] [place] [address] [employer] [address] [place] [address] Social History Tobacco Use Types Packs/Day Years Used Date Smoking Tobacco: Former Cigarettes 0.3 60.1 0 05/01/1964 - 06/22/2024 Alcohol Use Standard Drinks/Week Comments Yes 28 (1 standard drink = 0.6 oz pure alcohol) patient reports not drinking at all anymore Sex and Gender Information Value Date Recorded Sex Assigned at Not on file Legal Sex Male 2:16 PM RN VASCULAR Gender Identity Not on file Sexual Orientation Not on file documented as of this encounter Plan of Treatment Upcoming Encounters Date Type Department Care Team (Late st Contact Info) Description 01/23/2025 9:30 AM CDT Office Visit [facility] Oncology and Hematology - Boyd Ruthie [address] [place] [address] Jose Gates MD [address] [place] [address] [employer] [address] [place] [address] documented as of this encounter Procedures Procedure Name Priority Date/Time Associated Diagnosis Comments CT CHEST W CONTRAST Routine 12/27/2024 3:00 PM CDT documented in this encounter Results * CT CHEST W CONTRAST (12/27/2024 3:00 PM CDT) Anatomical Region Laterality Modality Chest Computed Tomogra phy Jose Gates MD CT ORDERABLES Final Result documented in this encounter Visit Diagnoses Not on filedocumented in this encounter Care Teams Seismic Prospecting Observer Helper Relationship Specialty Start Date End Date Emily Hensley MD [address] [place] [address] PCP - General Family Practice 05/03/24 documented as of this encounter
[2025-01-08 15:40] LABS: MALB Creatinine Ratio 163.0 mg/g (0-30)
[2025-01-08 15:42] LABS: Hemoglobin A1C 5.2 % (<5.7)
[2025-01-08 16:40] LABS: Prostate Specific Antigen 14.2 ng/mL (< OR = 4.0)
== END 2025-01-08 13:56 | disposition home or self-care (01) ==
LOC: ANHLAB 13:56
PROVIDERS: PCP Family Medicine; Visit Provider Family Medicine
DX: E55.9 Vitamin D deficiency, unspecified (principal); E11.9 Type 2 diabetes mellitus without complications; R97.20 Elevated prostate specific antigen [PSA]; Z12.5 Encounter for screening for malignant neoplasm of prostate
CPT/HCPCS: 36415; 82043; 82306; 83036; 84153; G0103

== ENCOUNTER 2025-02-04 10:39 | Outpatient (CLI) | payer MEDICARE, SELFPAY ==
--- NOTE | ~2025-02-04 | PE_ITS ---
EXAMINATION: PET skull to mid thigh DATE: 02/04/2025 14:02 INDICATION: Malignant neoplasm of lung. TECHNIQUE: Blood glucose level was 104 mg/dL. 10.259 mCi of 18- fluorodeoxyglucose (18-FDG) was administered i.v. Low dose computed tomography (CT) images were acquired from the base of the brain to the proximal thighs for attenuation correction and anatomic localization. Automated exposure control was employed. Dose-length product (DLP) was 1021 mGy-cm. Positron emission tomography (PET) images were acquired in the same distribution. COMPARISON: PET/CT 05/09/2024 FINDINGS: Head/neck: There are no pathologically enlarged lymph nodes. Chest: There is mild emphysema. There is diffuse septal thickening in the lungs. Calcified left lung nodules and calcified left hilar lymph nodes are consistent with old granulomatous disease. There is a 1.6 cm nodule in right lung upper lobe with maximum SUV of 2.8. There is a 1.7 cm nodule in right lower lobe with maximum SUV of 2.3. There are patchy groundglass opacities and right upper lobe, right middle lobe, and right lower lobe that may be changes of radiation therapy. There are a few scattered nodules in the lungs measuring up to 9 mm in left upper lobe without increased activity. There is a trace right pleural effusion. The heart size is normal. There are coronary artery calcifications. No pericardial effusion. There is a right subclavian port with tip at superior cavoatrial junction. There are healing fractures of left sixth and seventh ribs. There are sclerotic lesions of bone in T11 and T12 vertebral bodies. Abdomen/pelvis/proximal thighs: The liver and gallbladder are normal. Calcifications in the spleen are consistent with old granulomatous disease. There is thickening of the adrenal glands with mildly increased activity. The pancreas and kidneys are normal. There is a penile prosthesis. The prostate is mildly enlarged. There are no dilated loops of bowel. The appendix is normal. There is a small sliding hiatal hernia. There are no pathologically enlarged lymph nodes. There is no free intraperitoneal fluid. There is a left-sided inferior vena cava. There are bilateral inguinal hernias containing fat. There are arterial grafts in the thighs. IMPRESSION: 1. Right lung upper lobe nodule with increased activity improvement from 05/09/2024, consistent with primary bronchogenic carcinoma. 2. Scattered pulmonary nodules without increased activity with worsening from 05/09/2024, which may be infection or metastatic disease. 3. Sclerotic lesions in T11 and T12 vertebral bodies with worsening from 05/09/2024, consistent with metastatic disease. Reviewed, dictated and finalized at location E. IMPRESSION: 1. Right lung upper lobe nodule with increased activity improvement from 025, consistent with primary bronchogenic carcinoma. 2. Scattered pulmonary nodules without increased activity with worsening from , which may be infection or metastatic disease. 3. Sclerotic lesions in T11 and T12 vertebral bodies with worsening from 025, consistent with metastatic disease.
--- OUTSIDE RECORDS SUMMARY | 2025-02-04 12:29 | XMS_ITS | Clinical Summary ---
Author Organization [facility] [address] Address [address] [place] [address] Care Team Providers Care Crop Or Grain Farmworker Name Role Phone Emily Hensley MD Primary Care Provider Britany Webber MD Unavailable [phone] Allergies No known active allergies Medications albuterol [...] atorvastatin (LIPITOR) 20 mg tabletIndications: Atherosclerosis of [place] artery of both lower extremities with intermittent [...] on file Legal Sex Male 10:28 AM INSPECTOR WREATH Gender Identity Not on file Sexual Orientation Not on file Obstetrics History Last Filed Vital Signs Vital Sign Reading Time Taken Comments Blood Pressure 100/52 07/29/2024 10:52 AM CDT Pulse 100 07/29/2024 10:52 AM CDT Temperature 36.6 C (97.8 F) 04/11/2024 9:33 AM INSPECTOR WREATH Respiratory Rate 18 04/11/2024 9:33 AM INSPECTOR WREATH Oxygen Saturation 98% 07/29/2024 10:52 AM CDT [...] 2024 Fall Risk Assessment 04/04/2025 04/04/2024 Insurance [facility] MEDICARE GOLD [facility] MEDICARE [facility] Care Teams Crop Or Grain Farmworker Relationship Specialty Start Date End Date Emily Hensley MD PCP - General Family Practice 08/21/20 Britany Webber MD [address] [facility] [address] [place] [address] Consulting Physician Critical Care Med 04/18/24
--- OUTSIDE RECORDS SUMMARY | 2025-02-04 12:29 | XMS_ITS | Encounter Summary ---
Author Organization [facility] ZI Burris [facility] Address [address] [place] [address] Care Team Providers Care Concrete Pipe Machine Operator Name Role Phone Emily Hensley MD Primary Care Provider Encounter Details Date Type Department Care Team (Late Contact Info) Description 02/03/2025 Orders Only [facility] Oncology and Hematology - Boyd [address] [place] [address] [place] [address] [place], [place] [address] [address] [place] [address] Benign hypertension Social History Tobacco Use Types Packs/Day Years Used Date Smoking Tobacco: Former Cigarettes 0.3 60.1 0 05/01/1964 - 06/22/2024 Alcohol Use Standard Drinks/Week Comments Yes 28 (1 standard drink = 0.6 oz pure alcohol) patient reports not drinking at all anymore Sex and Gender Information Value Date Recorded Sex Assigned at Not on file Legal Sex Male 2:16 PM EMBOSSED OR IMPRESSED LETTERING PAINTER Gender Identity Not on file Sexual Orientation Not on file documented as of this encounter Plan of Treatment Upcoming Encounters Date Type Department Care Team (Late st Contact Info) Description 02/11/2025 4:30 PM CDT Telephone Check Up [facility] Oncology and Hematology - [address] [place] [address] Jose Gates MD [address] [employer] [address] [place] [address] documented as of this encounter Visit Diagnoses Diagnosis Benign hypertension Essential hypertension, benign documented in this encounter Care Teams Concrete Pipe Machine Operator Relationship Specialty Start Date End Date Emily Hensley MD [address] [place] [address] PCP - General Family Practice 05/03/24 documented as of this encounter
--- OUTSIDE RECORDS SUMMARY | 2025-02-04 12:29 | XMS_ITS | Clinical Summary ---
Author Organization [facility] Gissel frausto [facility] Address [address] [place] [address] Care Team Providers Care Letterpress Printing Machinist Name Role Phone Emily Hensley MD Primary Care Provider Allergies Active Allergy Reactions Criticality Noted Date Comments Meloxicam Syncope Medium 11/09/2020 Medications aspirin (ECOTRIN EC) 81 mg Tablet, Delayed Release (E.C.) Take 1 Tablet by mouth daily. 09/10/19 23 Active atorvastatin (LIPITOR) 20 mg tablet Take 20 mg by mouth daily. 09/13/19 24 Active Blood-Glucose Sensor (Sevconcom G7 Sensor) Device 01/16/20 24 Active cholecalciferol , Vitamin D3, 125 mcg (5,000 unit) Capsule Take 5,000 Units by mouth daily. Active albuterol sulfate 90 mcg/actuation metered powder inhaler Take by inhalation. Active dexAMETHasone (DECADRON) 4 mg tablet Take 1 Tablet (4 mg) by mouth 2 times daily day before treatment, day of treatment, day after treatment. 6 Tablet 5 05/27/19 25 Active ondansetron (ZOFRAN ODT) 8 mg Tablet, Rapid DissolveIndicat ions:Malignant neoplasm of lung, unspecified laterality, unspecified part of lung Dissolve 1 tablet on top of tongue [...] treatment. 90 Tablet 3 12/17/19 25 Active Active Problems Problem Noted Date Diagnosed Date Malignant neoplasm of lung 12/26/2024 Encounters Date Type Department Care Team Description 02/03/2025 Orders Only [facility] - [place] [address] [place] [address] Jose Gates MD Benign hypertension 01/27/2025 Orders Only [facility] - [place] [address] Jose Gates MD Malignant neoplasm of lung, unspecified laterality, unspecified part of lung 01/23/2025 9:30 AM CDT Office Visit [facility] - [place] Ruthie [address] Jose Gates MD Malignant neoplasm of lung, unspecified laterality, unspecified part of lung (Primary Dx) 01/20/2025 Orders Only [facility] - [place] [address]ie [address] Jose Gates MD Benign hypertension 01/13/2025 Orders Only [facility] - [place] [address] Jose Gates MD Malignant neoplasm of lung, unspecified laterality, unspecified part of lung (CMS/HCC) 01/09/2025 Orders Only [facility] - [place] [address] [place] [id number] Jose Gates MD 01/08/2025 Orders Only [facility] - [place] [address] Jose Gates MD Benign hypertension (Primary Dx) 01/07/2025 External Device Data STL ABSTRACTION Provider, Abstract 01/07/2025 Orders Only [facility] - [place] [address] Jose Bates MD 12/31/2024 External Device Data STL ABSTRACTION Provider, Abstract 12/31/2024 External Device Data STL ABSTRACTION Provider, Abstract 12/31/2024 External Device Data STL ABSTRACTION Provider, Abstract 12/30/2024 Orders Only [facility] - [place] [address] [place] [id number] Jose Gates MD Malignant neoplasm of lung, unspecified laterality, unspecified part of lung (CMS/HCC) 12/26/2024 9:30 AM CDT Office Visit [facility] - [place] [address] [place] [id number] Christal Del Rosario MD Malignant neoplasm of lung, unspecified laterality, unspecified part of lung (CMS/HCC) (Primary Dx) 12/26/2024 Orders Only [facility] - [place] [address] [place] [address] Jose Gates MD 12/24/2024 External Device Data STL ABSTRACTION Provider, Abstract 12/16/2024 Refill [facility] - [place] [address] [place] [address] Jose Gates MD 12/16/2024 Orders Only [facility] - [place] [address] [place] [address] Jose Gates MD Malignant neoplasm of lung, unspecified laterality, unspecified part of lung (CMS/HCC) 12/13/2024 Orders Only [facility]ology - [place] [address] [place] [address] Jose Gates MD 12/12/2024 Orders Only [facility]ology - [place] [address] [place] [address] Jose Gates MD 12/02/2024 Orders Only [facility]ology - [place] [address] [place] [address] Jose Gates MD Malignant neoplasm of lung, unspecified laterality, unspecified part of lung (CMS/HCC) 11/28/2024 9:45 AM CDT Office Visit [facility]ology - [place] [address] [place] [address] Jose Gates MD Malignant neoplasm of lung, unspecified laterality, unspecified part of lung (CMS/HCC) (Primary Dx) 11/28/2024 Orders Only [facility]ology - [place] [address] [place] [address] Jose Gates MD 11/18/2024 Orders Only [facility]ology - [place] [address] [place] [address] Jose Gates MD Malignant neoplasm of lung, unspecified laterality, unspecified part of lung (CMS/HCC) 11/14/2024 Orders Only [facility]ology - [place] [address] [place] [address] Jose Gates MD 11/04/2024 Orders Only [facility] - [place] [address] [place] [address] Jose Gates MD Malignant neoplasm of lung, [...] on file Legal Sex Male 2:16 PM AIRCRAFT CYL[employer] MECHANIC Gender Identity Not on file Sexual Orientation Not on file Last Filed Vital Signs Vital Sign Reading Time Taken Comments Blood Pressure 139/76 01/23/2025 9:46 AM CDT Pulse 93 01/23/2025 9:46 AM CDT Temperature 36.6 C (97.8 F) 01/23/2025 9:46 AM CDT Respiratory Rate 15 01/23/2025 9:46 AM CDT Oxygen Saturation 96% 01/23/2025 9:46 AM CDT Inhaled Oxygen Concentration - - Weight 77.5 kg (170 lb 12.8 oz) 01/23/2025 9:46 AM CDT Height 170.2 cm (5' 7) 05/01/2024 3:53 PM AIRCRAFT CYLINDER MECHANIC Body Mass Index 26.75 05/01/2024 3:53 PM AIRCRAFT CYLINDER MECHANIC Plan of Treatment Upcoming Encounters Date Type Department Care Team (Late st Contact Info) Description 02/11/2025 4:30 PM CDT Telephone Check Up [facility] [address] [facility] [address] [place] [address] Jose Gates MD [address] [facility] [address] [place] [address] Health Maintenance Due Date Last Done Comments DTAP/TDAP/TD VACCINES (1 - Tdap) 1970 PNEUMOCOCCAL VACCINE 50+ YEARS (1 of 2 - PCV) 04/21/19 70 COLORECTAL SCREENING 1996 Colorectal Cancer Screening 1996 FIT-DNA Q 3 years 1996 FIT/FOBT Q 1 year 1996 Flex Sig/CT Colonography Q 5 years 1996 ZOSTER VACCINE (1 of 2) 2001 Abdominal Aortic Aneurysm (AAA) Screening 2016 Medicare Advantage ([place]) Prev entative Visit/Annual Wellness Visit 04/24/2024 INFLUENZA VACCINE (#1) 2024 RSV VACCINE (60+ or ) (1 - 1-dose 75+ series) 2026 Procedures Procedure Name Priority Date/Time Associated Diagnosis Comments BASIC METABOLIC PANEL Routine 01/09/2025 3:56 PM CDT CBC WITH AUTODIFFERENTIAL Routine 2024 3:39 PM CDT COMPREHENSIVE METABOLIC PANEL Routine 01/09/2025 11:[address] CHEST W CONTRAST Routine 12/27/2024 3 [...] METABOLIC PANEL Routine 11/14/2024 1:10 PM CDT from Last 3 Months Results * BASIC METABOLIC PANEL (01/09/2025 3:56 PM CDT) Only the most recent of5 resultswithin the time period is included. Blood us Jose Gates MD CHEMISTRY ORDERABLES Final Resu lt * CBC WITH AUTODIFFERENTIAL (01/09/2025 3:39 PM CDT) Only the most recent of2 resultswithin the time period is included. Blood us Jose Gates MD HEMATOLOGY ORDERABLES Final Res ult * COMPREHENSIVE METABOLIC PANEL (01/09/2025 11:58 AM CDT) Only the most recent of5 resultswithin the time period is included. Blood us Jose Gates MD CHEMISTRY ORDERABLES Final Resu lt * CT CHEST W CONTRAST (12/27/2024 3:00 PM CDT) Anatomical Region Laterality Modality Chest Computed Tomogra phy us Jose Gates MD CT ORDERABLES Final Result from Last 3 Months Insurance [facility] MCR Care Teams Letterpress Printing Machinist Relationship Specialty Start Date End Date Emily Hensley MD [address] [place] [address] PCP - General Family Practice 05/03/24
--- OUTSIDE RECORDS SUMMARY | 2025-02-04 12:29 | XMS_ITS | Encounter Summary ---
Author Organization [facility] Address [address] [place] [address] Care Team Providers Care Supplier Diversity Director Name Role Phone Emily Hensley MD Primary Care Provider Britany Webber MD Unavailable [phone] Reason for Referral * MRI/CAT/PET Scan (Routine) - Pending Review Specialty Diagnoses / Procedures Referred By Contac t Referred To Contact Radiology Diagnoses Elevated prostate specific antigen (PSA) Procedures MRI PELVIS PROSTATE W WO CONTRAST Dashawn Collins MD [address] [address] Phone: tel: fax: [address] [address] Referral ID Status Reason Start Date Expiration Date V isits Requested Visits Authorized [id number] Pending Review 05/28/2024 06/27/2025 1 1 T COORDINATOR Encounter Details Date Type Department Care Team (Late st Contact Info) Description 05/28/[address] [facility] EpicCare Link Dashawn Collins MD [address] [address] Elevated prostate specific antigen (PSA) [...] on file Legal Sex Male 10:28 AM HEART COORDINATOR Gender Identity Not on file Sexual [...] Primary documented in this encounter Care Teams Supplier Diversity Director Relationship Specialty Start Date End Date Emily Hensley MD PCP - General Family Practice 08/21/20 Britany Webber MD [address] [facility] [address] [place] [address] Consulting Physician Critical Care Med 04/18/24 documented as of this encounter
== END 2025-02-04 10:40 | disposition home or self-care (01) ==
PROVIDERS: PCP Family Medicine; Visit Provider Internal Medicine Hematology & Oncology
DX: C34.11 Malignant neoplasm of upper lobe, right bronchus or lung (principal)
CPT/HCPCS: 78815; A9552